=== PATIENT | male | born 1975 | race Caucasian/White ===

== ENCOUNTER 2022-08-11 08:45 | Inpatient (IN) | payer BC ==
[2022-08-11] MEDS ORDERED: Sodium Chloride 0.9% 1000 ML 1,000 ML IV STA (09:12)
[2022-08-11] MEDS ORDERED: MORPHINE SULFATE 2 MG INJ IV ONE (09:12)
[2022-08-11 09:18] LABS: Absolute Neutrophil Ct (ANC) 10.28 x10^3/uL (1.4-6.9); Basophil (Absolute #) 0.04 x10^3/uL (0-0.4); Eosinophil % 0.6 % (0.00-5.0); Eosinophil (Absolute #) 0.08 x10^3/uL (0-0.5); Hematocrit 45.9 % (42-50); Hemoglobin 16.2 g/dL (12.5-18.0); Lymphocyte (Absolute #) 1.41 x10^3/uL (1.0-4.6); Mean Cell Volume 83.9 fL (78-100); Mean Corpuscular Hemoglobin 29.6 pg (26-32); Mean Corpuscular Hgb Concent. 35.3 g/dL (32-36); Mean Platelet Volume 9.6 fL (7.5-11.0); Monocyte (Absolute #) 1.03 x10^3/uL (0.0-1.3); Neutrophil % 79.9 % (36.0-66.0); Platelet Count 217 x10^3/uL (150-450); Red Blood Count 5.47 x10^6/uL (4.1-5.6); Red Cell Distribution Width 12.8 % (11.5-14.0); White Blood Count 12.9 x10^3/uL (4.0-10.5)
[2022-08-11] MEDS ORDERED: MORPHINE SULFATE 2 MG INJ ONE (09:20)
[2022-08-11] MEDS ORDERED: Sodium Chloride 0.9% 1000 ML 1,000 ML ONE (09:20)
[2022-08-11 09:30] LABS: ALBUMIN 4.4 g/dL (3.5-5.0); ALKALINE PHOSPHATASE 75 U/L (38-126); ANION GAP 11.5 MEQ/L (5-15); BLOOD UREA NITROGEN 15 mg/dL (9-20); CHLORIDE 105 mmol/L (98-107); Calcium 8.8 mg/dL (8.4-10.2); Carbon Dioxide 21 mmol/L (22-30); Creatinine 1 0.83 mg/dL (0.66-1.25); EST GLOMERULAR FILTRATION RATE > 60.0 ML/MIN; Glucose 121 mg/dL (74-106); LIPASE 50 U/L (23-300); Potassium 4.1 mmol/L (3.5-5.1); SGOT/AST 28 U/L (17-59); SGPT/ALT 30 U/L (0-50); SODIUM 133 mmol/L (137-145); Total Protein 7.3 g/dL (6.3-8.2)
[2022-08-11] MEDS ORDERED: MORPHINE SULFATE 4 MG INJ IV ONE ×2 (09:58→11:05)
--- NOTE | 2022-08-11 10:01 | XRAY ---
Indication: Pain and nausea. History stones. Multiple contiguous axial images obtained through the abdomen and pelvis without contrast. Comparison: April 24, 2016 Lung bases now demonstrates mild left base subsegmental atelectasis/scarring. No infiltrate or effusion. Heart not enlarged. Again small hiatal hernia. Noncontrasted stomach and bowel loops remain nonobstructed again with normal appendix. There remains scattered descending and sigmoid diverticulosis with new short segment of mild sigmoid diverticulitis. Tiny extraluminal air bubble concerning for perforation. No free fluid. Enlarging 1 cm gallstone. Again incidental fatty liver and 14.4 cm splenomegaly. Previous right renal cyst not seen on noncontrast exam. Remaining liver, gallbladder, pancreas, spleen, adrenal glands, kidneys, ureters, bladder, and aorta are unremarkable for noncontrast exam. Osseous structures intact again with mild L5-S1 degenerative changes. Impression: 1. Again colonic diverticulosis with new mild sigmoid diverticulitis. Tiny extraluminal air bubble concerning for perforation. 2. Again incidental small hiatal hernia, fatty liver, gallstone, and splenomegaly.
[2022-08-11] MEDS ORDERED: MORPHINE SULFATE 4 MG INJ ONE (10:17)
[2022-08-11 10:25] LABS: Appearance CLEAR (CLEAR); Bilirubin NEGATIVE (NEGATIVE); Dipstick done @ ? MAIN LAB; Glucose NEGATIVE (NEGATIVE); Ketones NEGATIVE (NEGATIVE); Nitrite NEGATIVE (NEGATIVE); Protein,Urine Dip NEGATIVE (Negative); RBC NEGATIVE Ery/ul (0-5); Urobilinogen 1 mg/dL (0-1)
[2022-08-11] MEDS ORDERED: PIPERACILLIN/TAZOBACTAM 3.375 GM in Sodium Chloride 100ML MINI-BAG PLUS 100 ML IV ONE (10:28)
[2022-08-11 10:34] LABS: Urine Cultured Indicated? NO
[2022-08-11] MEDS ORDERED: PIPERACILLIN/TAZOBACTAM IV ONE (10:37)
[2022-08-11] MEDS ORDERED: Sodium Chloride 100ML MINI-BAG PLUS 100 ML IV ONE (10:39)
[2022-08-11 10:53] LABS: INFLUENZA A NEGATIVE (NEGATIVE); INFLUENZA B NEGATIVE (NEGATIVE); RESPIRATORY SYNCTIAL VIRUS NEGATIVE (Negative); SARS-CoV-2 Xpert Express NEGATIVE (NEGATIVE)
[2022-08-11] MEDS ORDERED: Hydromorphone 1 mg/ml Injection IV ONE (11:08)
--- NOTE | 2022-08-11 11:16 | ERPHSYRPT ---
- History of Present Illness Time Seen by Provider: 08/11/22 09:00 Historian: patient Exam Limitations: no limitations Patient Subjective Stated Complaint: Pt states "I woke up this morning and I feel like I have tremendous pressure in my abdomen. I got a little relief when I urinated this morning but it hurts really bad." Triage Nursing Assessment: Pt presented alert and tearful. Pt is coming from [facility]. Pt able to stand hunched over, moaning and guarding his abodmen. PT moans every time he moves. Physician History: Patient is a 46-year-old male presents emergency department for evaluation of lower abdominal pain. Pain observed this morning. Patient states he urinated and experienced some relief. Patient has a history of diverticulitis. Patient states pain is similar. Pain described as an ache that is localized to the lower abdomen. No peritoneal signs. No associated nausea vomiting or diarrhea. No rash. No fever. Symptoms are moderate in intensity. Patient voices no other complaints or concerns at this time. Portions of this note were created with voice recognition technology. There may be grammatical, spelling, punctuation or sound alike errors Timing/Duration: today Activities at Onset: none Quality: aching Abdominal Pain Onset Location: other (Left lower quadrant) Pain Radiation: no radiation Severity of Pain-Max: moderate Severity of Pain-Current: mild Modifying Factors: Improves With: nothing Associated Symptoms: denies symptoms Previous symptoms: same symptoms as today Allergies/Adverse Reactions: No Known Drug Allergies Allergy (Verified 08/11/22 08:59) Home Medications: Apixaban [Eliquis 5 mg Tablet] 5 mg PO BID 08/11/22 [History] Hx Tetanus, Diphtheria Vaccination/Date Given: Yes Hx Influenza Vaccination/Date Given: Yes Hx Pneumococcal Vaccination/Date Given: No Immunizations Up to Date: Yes Travel Risk - International Travel Have you traveled outside of the country in past 3 weeks: No - Coronavirus Screening Are you exhibiting any of the following symptoms?: No Close contact with a COVID-19 positive Pt in past 14-21 Days: No - Vaccine Status Have you recieved a Covid-19 vaccination: No - Review of Systems Constitutional: No Symptoms Eyes: No Symptoms Ears, Nose, & Throat: No Symptoms Respiratory: No Symptoms Cardiac: No Symptoms Abdominal/Gastrointestinal: No Symptoms Genitourinary Symptoms: No Symptoms Musculoskeletal: No Symptoms Skin: No Symptoms Neurological: No Symptoms Psychological: No Symptoms Endocrine: No Symptoms Hematologic/Lymphatic: No Symptoms Immunological/Allergic: No Symptoms - Past Medical History Pertinent Past Medical History: Yes Neurological History: No Pertinent History ENT History: No Pertinent History Cardiac History: Deep Vein Thrombosis Respiratory History: Pulmonary Embolism Endocrine Medical History: No Pertinent History Musculoskeletal History: No Pertinent History GI Medical History: No Pertinent History History: No Pertinent History Psycho-Social History: No Pertinent History Male Reproductive Disorders: No Pertinent History Other Medical History: DVT. factor V - Past Surgical History Past Surgical History: Yes Other Surgical History: tear duct in right eye - Social History Smoking Status: Former smoker Exposure to second hand smoke: Yes Drug Use: none Patient Lives Alone: No - Nursing Vital Signs Nursing Vital Signs: Initial Vital Signs Temperature 98.0 F 08/11/22 08:54 Pulse Rate 80 08/11/22 08:54 Respiratory Rate 24 08/11/22 08:54 Blood Pressure 128/91 08/11/22 08:54 O2 Sat by Pulse Oximetry 97 08/11/22 08:54 Pain Scale Pain Intensity 6 - Physical Exam General Appearance: no apparent distress, alert Eye Exam: PERRL/EOMI, eyes nml inspection Ears, Nose, Throat Exam: normal ENT inspection, pharynx normal, moist mucous membranes Neck Exam: normal inspection, non-tender, supple, full range of motion Respiratory Exam: normal breath sounds, lungs clear, No respiratory distress Cardiovascular Exam: regular rate/rhythm, normal heart sounds Gastrointestinal/Abdomen Exam: soft, tenderness, other (Tenderness palpation suprapubic region and left lower quadrant. Overlying soft tissue intact. No signs of trauma), No mass Back Exam: normal inspection, normal range of motion, No CVA tenderness, No vertebral tenderness Extremity Exam: normal inspection, normal range of motion, pelvis stable Neurologic Exam: alert, oriented x 3, cooperative, normal mood/affect, nml cerebellar function, sensation nml, No motor deficits Skin Exam: normal color, warm, dry Lymphatic Exam: No adenopathy SpO2 Interpretation: normal SpO2: 98 O2 Delivery: Room Air - Course Nursing assessment & vital signs reviewed: Yes - CT Exams Abdomen/Pelvis CT Interpretation: Tele-radiologist Report (Sigmoid diverticulosis with diverticulitis. There is a tiny extraluminal air observed concerning for perforation. Splenomegaly. Degenerative changes. Hiatal hernia.) Ordered Tests: Active Orders 24 hr Category Date Time Status IV Insertion STAT Care 08/11/22 09:12 Active ABDOMEN AND PELVIS W/0 CONTRAS [CT] Stat Exams 08/11/22 09:48 Completed CBC W DIFF Stat Lab 08/11/22 09:05 Completed CMP Stat Lab 08/11/22 09:05 Completed LIPASE Stat Lab 08/11/22 09:05 Completed Lactic Acid Stat Lab 08/11/22 09:12 Completed TROPONIN Q4H Lab 08/11/22 09:05 Completed TROPONIN Q4H Lab 08/11/22 13:15 Ordered TROPONIN Q4H Lab 08/11/22 17:15 Ordered UA W/RFX CULTURE Stat Lab 08/11/22 10:20 Completed Medication Summary Discontinued Medications Generic Name Dose Route Start Last Admin Trade Name Freq PRN Reason Stop Dose Admin Hydromorphone HCl 1 mg 08/11/22 11:08 Hydromorphone 1 Mg/1ml Inj 1 Mg/Ml Syringe IV 08/11/22 11:09 STAT ONE Sodium Chloride 1,000 mls @ 999 mls/hr 08/11/22 09:12 08/11/22 10:25 Sodium Chloride 0.9% 1000 Ml IV 08/11/22 10:12 Infused .Q1H1M STA Infusion Sodium Chloride Confirm 08/11/22 09:20 Sodium Chloride 0.9% 1000 Ml Administered 08/11/22 09:21 Dose 1,000 mls @ ud .ROUTE .STK-MED ONE Piperacillin Sod/Tazobactam 100 mls @ 200 mls/hr 08/11/22 10:28 08/11/22 10:41 Sod 3.375 gm/ Sodium Chloride IV 08/11/22 10:57 200 mls/hr STAT ONE Administration Sodium Chloride Confirm 08/11/22 10:39 Sodium Chloride 100ml Mini-Bag Plus Administered 08/11/22 10:40 Dose 100 mls @ ud IV .STK-MED ONE Morphine Sulfate 2 mg 08/11/22 09:12 08/11/22 09:22 Morphine Sulfate 2 Mg/Ml Inj IV 08/11/22 09:13 2 mg STAT ONE Administration Morphine Sulfate Confirm 08/11/22 09:20 Morphine Sulfate 2 Mg/Ml Inj Administered 08/11/22 09:21 Dose 2 mg .ROUTE .STK-MED ONE Morphine Sulfate 4 mg 08/11/22 09:58 08/11/22 10:17 Morphine Sulfate 4 Mg/Ml Injection IV 08/11/22 09:59 4 mg STAT ONE Administration Morphine Sulfate Confirm 08/11/22 10:17 Morphine Sulfate 4 Mg/Ml Injection Administered 08/11/22 10:18 Dose 4 mg .ROUTE .STK-MED ONE Morphine Sulfate 4 mg 08/11/22 11:05 08/11/22 11:08 Morphine Sulfate 4 Mg/Ml Injection IV 08/11/22 11:06 Not Given STAT ONE Piperacillin Sod/Tazobactam Sod Confirm 08/11/22 10:37 Piperacillin/Tazobactam Sodium 3.375 Gm Vial Administered 08/11/22 10:38 Dose 3.375 gm IV .STK-MED ONE Lab/Rad Data: Laboratory Result Diagrams 08/11/22 09:05 08/11/22 09:05 Laboratory Results 08/11/22 08/11/22 08/11/22 Range/Units 10:20 09:12 09:05 WBC (4.0-10.5) x10^3/uL RBC (4.1-5.6) x10^6/uL Hgb (12.5-18.0) g/dL Hct (42-50) % MCV (78-100) fL MCH (26-32) pg MCHC (32-36) g/dL RDW (11.5-14.0) % Plt Count (150-450) x10^3/uL MPV (7.5-11.0) fL Gran % (36.0-66.0) % Immature Gran % (Auto) (0.00-0.4) % Nucleat RBC Rel Count (0.00-0.1) % Eos # (Auto) (0-0.5) x10^3/uL Immature Gran # (Auto) (0.00-0.03) x10^3u/L Absolute Lymphs (auto) (1.0-4.6) x10^3/uL Absolute Monos (auto) (0.0-1.3) x10^3/uL Absolute Nucleated RBC (0.00-0.01) x10^3u/L Lymphocytes % (24.0-44.0) % Monocytes % (0.0-12.0) % Eosinophils % (0.00-5.0) % Basophils % (0.0-0.4) % Absolute Granulocytes (1.4-6.9) x10^3/uL Basophils # (0-0.4) x10^3/uL Sodium (137-145) mmol/L Potassium (3.5-5.1) mmol/L Chloride (98-107) mmol/L Carbon Dioxide (22-30) mmol/L Anion Gap (5-15) MEQ/L BUN (9-20) mg/dL Creatinine (0.66-1.25) mg/dL Estimated GFR ML/MIN Glucose (74-106) mg/dL Lactic Acid 1.4 (0.4-2.0) Calcium (8.4-10.2) mg/dL Total Bilirubin (0.2-1.3) mg/dL AST (17-59) U/L ALT (0-50) U/L Alkaline Phosphatase (38-126) U/L Troponin I < 0.012 (0.000-0.034) ng/mL Serum Total Protein (6.3-8.2) g/dL Albumin (3.5-5.0) g/dL Lipase (23-300) U/L Urinalys Dipstick Clnc MAIN LAB Urine Color YELLOW (YELLOW) Urine Appearance CLEAR (CLEAR) Urine pH 7.0 (5-6) Ur Specific [place] 1.020 (1.005-1.025) POC Urine Protein Conf NEGATIVE (Negative) Urine Ketones NEGATIVE (NEGATIVE) Urine Nitrite NEGATIVE (NEGATIVE) Urine Bilirubin NEGATIVE (NEGATIVE) Urine Urobilinogen 1 (0-1) mg/dL Urine Leukocytes NEGATIVE (NEGATIVE) Urine WBC (Auto) NONE (0-5) /HPF Urine RBC (Auto) NONE (0-2) /HPF U Epithel Cells (Auto) NONE (FEW) /HPF Urine Bacteria (Auto) NONE (NEGATIVE) /HPF Urine RBC NEGATIVE (0-5) Junior/ul Ur Culture Indicated? NO Urine Glucose NEGATIVE (NEGATIVE) mg/dL 08/11/22 08/11/22 Range/Units 09:05 09:05 WBC 12.9 H (4.0-10.5) x10^3/uL RBC 5.47 (4.1-5.6) x10^6/uL Hgb 16.2 (12.5-18.0) g/dL Hct 45.9 (42-50) % MCV 83.9 (78-100) fL MCH 29.6 (26-32) pg MCHC 35.3 (32-36) g/dL RDW 12.8 (11.5-14.0) % Plt Count 217 (150-450) x10^3/uL MPV 9.6 (7.5-11.0) fL Gran % 79.9 H (36.0-66.0) % Immature Gran % (Auto) 0.2 (0.00-0.4) % Nucleat RBC Rel Count 0.0 (0.00-0.1) % Eos # (Auto) 0.08 (0-0.5) x10^3/uL Immature Gran # (Auto) 0.03 (0.00-0.03) x10^3u/L Absolute Lymphs (auto) 1.41 (1.0-4.6) x10^3/uL Absolute Monos (auto) 1.03 (0.0-1.3) x10^3/uL Absolute Nucleated RBC 0.00 (0.00-0.01) x10^3u/L Lymphocytes % 11.0 L (24.0-44.0) % Monocytes % 8.0 (0.0-12.0) % Eosinophils % 0.6 (0.00-5.0) % Basophils % 0.3 (0.0-0.4) % Absolute Granulocytes 10.28 H (1.4-6.9) x10^3/uL Basophils # 0.04 (0-0.4) x10^3/uL Sodium 133 L (137-145) mmol/L Potassium 4.1 (3.5-5.1) mmol/L Chloride 105 (98-107) mmol/L Carbon Dioxide 21 L (22-30) mmol/L Anion Gap 11.5 (5-15) MEQ/L BUN 15 (9-20) mg/dL Creatinine 0.83 (0.66-1.25) mg/dL Estimated GFR > 60.0 ML/MIN Glucose 121 H (74-106) mg/dL Lactic Acid (0.4-2.0) Calcium 8.8 (8.4-10.2) mg/dL Total Bilirubin 1.10 (0.2-1.3) mg/dL AST 28 (17-59) U/L ALT 30 (0-50) U/L Alkaline Phosphatase 75 (38-126) U/L Troponin I (0.000-0.034) ng/mL Serum Total Protein 7.3 (6.3-8.2) g/dL Albumin 4.4 (3.5-5.0) g/dL Lipase 50 (23-300) U/L Urinalys Dipstick Clnc Urine Color (YELLOW) Urine Appearance (CLEAR) Urine pH (5-6) Ur Specific [place] (1.005-1.025) POC Urine Protein Conf (Negative) Urine Ketones (NEGATIVE) Urine Nitrite (NEGATIVE) Urine Bilirubin (NEGATIVE) Urine Urobilinogen (0-1) mg/dL Urine Leukocytes (NEGATIVE) Urine WBC (Auto) (0-5) /HPF Urine RBC (Auto) (0-2) /HPF U Epithel Cells (Auto) (FEW) /HPF Urine Bacteria (Auto) (NEGATIVE) /HPF Urine RBC (0-5) Junior/ul Ur Culture Indicated? Urine Glucose (NEGATIVE) mg/dL - Progress Progress: improved Progress Note: Patient reassessed. Pain improved. Work-up reveals a diverticulitis possible microperforation. Case discussed with of general surgery who accepts consultation. Case discussed with who accepts admission to observation. Plan of care discussed with patient. He agrees to admission [facility] for further evaluation. Antibiotics infused. Patient voices no other complaints or concerns at this time. Portions of this note were created with voice recognition technology. There may be grammatical, spelling, punctuation or sound alike errors 08/11/22 11:[address] Charley Guardado Will see patient in: hospital (observation) Counseled pt/family regarding: lab results, diagnosis, rad results - Departure Departure Disposition: Observation Clinical Impression: Diverticulitis, Microperforation sigmoid colon, Splenomegaly, Hiatal hernia, Sigmoid diverticulosis, Abdominal pain, Leukocytosis Condition: Stable Critical Care Time: No Referrals: MICHAEL GRAVES [Primary Care Provider] - Follow up/PCP as directed
[2022-08-11] MEDS ORDERED: Hydromorphone 1 mg/ml Injection ONE (11:24)
[2022-08-11] MEDS ORDERED: PIPERACILLIN/TAZOBACTAM 3.375 GM in Sodium Chloride 100ML MINI-BAG PLUS 100 ML IV SCH (12:35)
[2022-08-11] MEDS: Sodium Chloride 0.9% 1000 ML 1,000 ML IV SCH ×2 (13:19→22:11)
[2022-08-11] MEDS: Hydromorphone 1 mg/ml Injection IV PRN ×2 (16:05→22:09)
[2022-08-11] MEDS: PIPERACILLIN/TAZOBACTAM 3.375 GM in Sodium Chloride 100ML MINI-BAG PLUS 100 ML IV SCH (17:36)
--- NOTE | 2022-08-11 20:42 | PCM.HP ---
History of Present Illness - Chief Complaint Chief Complaint: abdominal pain for 1 day History of Present Illness: is a 46 year old male.presents emergency department for evaluation of lower abdominal pain. Pain observed this morning. Patient states he urinated and experienced some relief. Patient has a history of diverticulitis. Patient states pain is similar. Pain described as an ache that is localized to the lower abdomen. No peritoneal signs. No associated nausea vomiting or diarrhea. No rash. No fever. Symptoms are moderate in intensity. Patient voices no other complaints or concerns at this time. Portions of this note were created with voice recognition technology. There may be grammatical, spelling, punctuation or sound alike errors Timing/Duration: today Activities at Onset: none Quality: aching Abdominal Pain Onset Location: other (Left lower quadrant) Pain Radiation: no radiation Severity of Pain-Max: moderate Severity of Pain-Current: mild Modifying Factors: Improves With: nothing Associated Symptoms: denies symptoms Previous symptoms: same symptoms as today - Review of Systems Constitutional: No Fever, No Chills Eyes: No Symptoms Ears, Nose, & Throat: No Symptoms Respiratory: No Cough, No Short Of Breath Cardiac: No Chest Pain, No Edema, No Syncope Abdominal/Gastrointestinal: Abdominal Pain, Nausea, Vomiting, No Diarrhea Genitourinary Symptoms: No Dysuria Musculoskeletal: No Back Pain, No Neck Pain Skin: No Rash Neurological: No Dizziness, No Focal Weakness, No Sensory Changes Psychological: No Symptoms Endocrine: No Symptoms Hematologic/Lymphatic: No Symptoms Immunological/Allergic: No Symptoms Medications & Allergies Home Medications: Home Medication List Acetaminophen 500 mg [Tylenol Extra Strength 500 mg] 2 - 3 tab PO Q4-6HPRN PRN 08/11/22 [History Confirmed 08/11/22] Apixaban [Eliquis 5 mg Tablet] 5 mg PO BID 08/11/22 [History Confirmed 08/11/22] Allergies/Adverse Reactions: Allergies Allergy/AdvReac Type Severity Reaction Status Date / Time No Known Drug Allergies Allergy Verified 08/11/22 08:59 - Past Medical History Past Medical History: Yes Neurological History: No Pertinent History ENT History: No Pertinent History Cardiac History: Deep Vein Thrombosis Respiratory History: Pulmonary Embolism Endocrine Medical History: No Pertinent History Musculoskelatal History: No Pertinent History GI Medical History: Diverticulitis History: No Pertinent History Pyscho-Social History: No Pertinent History Male Reproductive Disorders: No Pertinent History Comment: DVT. factor V - Past Surgical History Past Surgical History: Yes Other Surgical History: tear duct in right eye - Social History Smoking Status: Former smoker Exposure to second hand smoke: Yes Alcohol: Rarely Drug Use: none - Physical Exam Vital Signs: Vital Signs - 24 hr Temp Pulse Resp BP Pulse Ox 08/11/22 20:00 98.1 F 91 H 18 113/74 93 L 08/11/22 16:00 99.6 F 92 H 16 121/72 93 L 08/11/22 14:03 100.1 F 99 H 22 118/72 96 08/11/22 13:22 100 08/11/22 12:41 100.1 F 99 H 22 118/72 96 08/11/22 12:08 90 20 117/75 92 L 08/11/22 11:31 98 08/11/22 11:03 98.0 F 95 H 20 134/84 98 08/11/22 10:20 98.0 F 88 18 134/88 98 08/11/22 09:50 98.0 F 83 20 134/88 98 08/11/22 08:54 98.0 F 80 24 128/91 97 General Appearance: no apparent distress, alert Neurologic Exam: alert, oriented x 3, cooperative, normal mood/affect, nml cerebellar function, nml station & gait, sensation nml, No motor deficits Eye Exam: PERRL/EOMI, eyes nml inspection Ears, Nose, Throat Exam: normal ENT inspection, TMs normal, pharynx normal, moist mucous membranes Neck Exam: normal inspection, non-tender, supple, full range of motion Respiratory Exam: normal breath sounds, lungs clear, No respiratory distress Cardiovascular Exam: regular rate/rhythm, normal heart sounds, normal peripheral pulses Gastrointestinal/Abdomen Exam: tenderness, distention, guarding, other (no Bowel sounds), No normal bowel sounds, No mass Back Exam: normal inspection, normal range of motion, No CVA tenderness, No vertebral tenderness Extremity Exam: normal inspection, normal range of motion, pelvis stable Skin Exam: normal color, warm, dry, No rash Lymphatic Exam: No adenopathy Results - Labs Lab/Micro Results: Lab Results-Last 24 Hours 10/25/22 10/25/22 10/25/22 Range/Units 09:05 09:05 09:05 WBC 12.9 H (4.0-10.5) x10^3/uL RBC 5.47 (4.1-5.6) x10^6/uL Hgb 16.2 (12.5-18.0) g/dL Hct 45.9 (42-50) % MCV 83.9 (78-100) fL MCH 29.6 (26-32) pg MCHC 35.3 (32-36) g/dL RDW 12.8 (11.5-14.0) % Plt Count 217 (150-450) x10^3/uL MPV 9.6 (7.5-11.0) fL Gran % 79.9 H (36.0-66.0) % Immature Gran % (Auto) 0.2 (0.00-0.4) % Nucleat RBC Rel Count 0.0 (0.00-0.1) % Eos # (Auto) 0.08 (0-0.5) x10^3/uL Immature Gran # (Auto) 0.03 (0.00-0.03) x10^3u/L Absolute Lymphs (auto) 1.41 (1.0-4.6) x10^3/uL Absolute Monos (auto) 1.03 (0.0-1.3) x10^3/uL Absolute Nucleated RBC 0.00 (0.00-0.01) x10^3u/L Lymphocytes % 11.0 L (24.0-44.0) % Monocytes % 8.0 (0.0-12.0) % Eosinophils % 0.6 (0.00-5.0) % Basophils % 0.3 (0.0-0.4) % Absolute Granulocytes 10.28 H (1.4-6.9) x10^3/uL Basophils # 0.04 (0-0.4) x10^3/uL Sodium 133 L (137-145) mmol/L Potassium 4.1 (3.5-5.1) mmol/L Chloride 105 (98-107) mmol/L Carbon Dioxide 21 L (22-30) mmol/L Anion Gap 11.5 (5-15) MEQ/L BUN 15 (9-20) mg/dL Creatinine 0.83 (0.66-1.25) mg/dL Estimated GFR > 60.0 ML/MIN Glucose 121 H (74-106) mg/dL Lactic Acid (0.4-2.0) Calcium 8.8 (8.4-10.2) mg/dL Total Bilirubin 1.10 (0.2-1.3) mg/dL AST 28 (17-59) U/L ALT 30 (0-50) U/L Alkaline Phosphatase 75 (38-126) U/L Troponin I < 0.012 (0.000-0.034) ng/mL Serum Total Protein 7.3 (6.3-8.2) g/dL Albumin 4.4 (3.5-5.0) g/dL Lipase 50 (23-300) U/L Urinalys Dipstick Clnc Urine Color (YELLOW) Urine Appearance (CLEAR) Urine pH (5-6) Ur Specific Bear (1.005-1.025) POC Urine Protein Conf (Negative) Urine Ketones (NEGATIVE) Urine Nitrite (NEGATIVE) Urine Bilirubin (NEGATIVE) Urine Urobilinogen (0-1) mg/dL Urine Leukocytes (NEGATIVE) Urine WBC (Auto) (0-5) /HPF Urine RBC (Auto) (0-2) /HPF U Epithel Cells (Auto) (FEW) /HPF Urine Bacteria (Auto) (NEGATIVE) /HPF Urine RBC (0-5) Junior/ul Ur Culture Indicated? Urine Glucose (NEGATIVE) mg/dL Influenza Type A Ag (NEGATIVE) Influenza Type B Ag (NEGATIVE) RSV (PCR) (Negative) SARS-CoV-2 (PCR) (NEGATIVE) 08/11/22 08/11/22 08/11/22 Range/Units 09:12 10:07 10:20 WBC (4.0-10.5) x10^3/uL RBC (4.1-5.6) x10^6/uL Hgb (12.5-18.0) g/dL Hct (42-50) % MCV (78-100) fL MCH (26-32) pg MCHC (32-36) g/dL RDW (11.5-14.0) % Plt Count (150-450) x10^3/uL MPV (7.5-11.0) fL Gran % (36.0-66.0) % Immature Gran % (Auto) (0.00-0.4) % Nucleat RBC Rel Count (0.00-0.1) % Eos # (Auto) (0-0.5) x10^3/uL Immature Gran # (Auto) (0.00-0.03) x10^3u/L Absolute Lymphs (auto) (1.0-4.6) x10^3/uL Absolute Monos (auto) (0.0-1.3) x10^3/uL Absolute Nucleated RBC (0.00-0.01) x10^3u/L Lymphocytes % (24.0-44.0) % Monocytes % (0.0-12.0) % Eosinophils % (0.00-5.0) % Basophils % (0.0-0.4) % Absolute Granulocytes (1.4-6.9) x10^3/uL Basophils # (0-0.4) x10^3/uL Sodium (137-145) mmol/L Potassium (3.5-5.1) mmol/L Chloride (98-107) mmol/L Carbon Dioxide (22-30) mmol/L Anion Gap (5-15) MEQ/L BUN (9-20) mg/dL Creatinine (0.66-1.25) mg/dL Estimated GFR ML/MIN Glucose (74-106) mg/dL Lactic Acid 1.4 (0.4-2.0) Calcium (8.4-10.2) mg/dL Total Bilirubin (0.2-1.3) mg/dL AST (17-59) U/L ALT (0-50) U/L Alkaline Phosphatase (38-126) U/L Troponin I (0.000-0.034) ng/mL Serum Total Protein (6.3-8.2) g/dL Albumin (3.5-5.0) g/dL Lipase (23-300) U/L Urinalys Dipstick Clnc MAIN LAB Urine Color YELLOW (YELLOW) Urine Appearance CLEAR (CLEAR) Urine pH 7.0 (5-6) Ur Specific Bear 1.020 (1.005-1.025) POC Urine Protein Conf NEGATIVE (Negative) Urine Ketones NEGATIVE (NEGATIVE) Urine Nitrite NEGATIVE (NEGATIVE) Urine Bilirubin NEGATIVE (NEGATIVE) Urine Urobilinogen 1 (0-1) mg/dL Urine Leukocytes NEGATIVE (NEGATIVE) Urine WBC (Auto) NONE (0-5) /HPF Urine RBC (Auto) NONE (0-2) /HPF U Epithel Cells (Auto) NONE (FEW) /HPF Urine Bacteria (Auto) NONE (NEGATIVE) /HPF Urine RBC NEGATIVE (0-5) Junior/ul Ur Culture Indicated? NO Urine Glucose NEGATIVE (NEGATIVE) mg/dL Influenza Type A Ag NEGATIVE (NEGATIVE) Influenza Type B Ag NEGATIVE (NEGATIVE) RSV (PCR) NEGATIVE (Negative) SARS-CoV-2 (PCR) NEGATIVE (NEGATIVE) 08/11/22 08/11/22 Range/Units 13:03 16:50 WBC (4.0-10.5) x10^3/uL RBC (4.1-5.6) x10^6/uL Hgb (12.5-18.0) g/dL Hct (42-50) % MCV (78-100) fL MCH (26-32) pg MCHC (32-36) g/dL RDW (11.5-14.0) % Plt Count (150-450) x10^3/uL MPV (7.5-11.0) fL Gran % (36.0-66.0) % Immature Gran % (Auto) (0.00-0.4) % Nucleat RBC Rel Count (0.00-0.1) % Eos # (Auto) (0-0.5) x10^3/uL Immature Gran # (Auto) (0.00-0.03) x10^3u/L Absolute Lymphs (auto) (1.0-4.6) x10^3/uL Absolute Monos (auto) (0.0-1.3) x10^3/uL Absolute Nucleated RBC (0.00-0.01) x10^3u/L Lymphocytes % (24.0-44.0) % Monocytes % (0.0-12.0) % Eosinophils % (0.00-5.0) % Basophils % (0.0-0.4) % Absolute Granulocytes (1.4-6.9) x10^3/uL Basophils # (0-0.4) x10^3/uL Sodium (137-145) mmol/L Potassium (3.5-5.1) mmol/L Chloride (98-107) mmol/L Carbon Dioxide (22-30) mmol/L Anion Gap (5-15) MEQ/L BUN (9-20) mg/dL Creatinine (0.66-1.25) mg/dL Estimated GFR ML/MIN Glucose (74-106) mg/dL Lactic Acid (0.4-2.0) Calcium (8.4-10.2) mg/dL Total Bilirubin (0.2-1.3) mg/dL AST (17-59) U/L ALT (0-50) U/L Alkaline Phosphatase (38-126) U/L Troponin I < 0.012 < 0.012 (0.000-0.034) ng/mL Serum Total Protein (6.3-8.2) g/dL Albumin (3.5-5.0) g/dL Lipase (23-300) U/L Urinalys Dipstick Clnc Urine Color (YELLOW) Urine Appearance (CLEAR) Urine pH (5-6) Ur Specific Bear (1.005-1.025) POC Urine Protein Conf (Negative) Urine Ketones (NEGATIVE) Urine Nitrite (NEGATIVE) Urine Bilirubin (NEGATIVE) Urine Urobilinogen (0-1) mg/dL Urine Leukocytes (NEGATIVE) Urine WBC (Auto) (0-5) /HPF Urine RBC (Auto) (0-2) /HPF U Epithel Cells (Auto) (FEW) /HPF Urine Bacteria (Auto) (NEGATIVE) /HPF Urine RBC (0-5) Junior/ul Ur Culture Indicated? Urine Glucose (NEGATIVE) mg/dL Influenza Type A Ag (NEGATIVE) Influenza Type B Ag (NEGATIVE) RSV (PCR) (Negative) SARS-CoV-2 (PCR) (NEGATIVE) - Radiology Impressions Radiology Exams & Impressions: Radiology Procedures Category Date Time Status ABDOMEN AND PELVIS W/0 CONTRAS [CT] Stat Exams 08/11/22 09:[address]/ABDOMEN AND PELVIS W/0 CONTRAS Indication: Pain and nausea. History stones. Multiple contiguous axial images obtained through the abdomen and pelvis without contrast. Comparison: April 24, 2016 Lung bases now demonstrates mild left base subsegmental atelectasis/scarring. No infiltrate or effusion. Heart not enlarged. Again small hiatal hernia. Noncontrasted stomach and bowel loops remain nonobstructed again with normal appendix. There remains scattered descending and sigmoid diverticulosis with new short segment of mild sigmoid diverticulitis. Tiny extraluminal air bubble concerning for perforation. No free fluid. Enlarging 1 cm gallstone. Again incidental fatty liver and 14.4 cm splenomegaly. Previous right renal cyst not seen on noncontrast exam. Remaining liver, gallbladder, pancreas, spleen, adrenal glands, kidneys, ureters, bladder, and aorta are unremarkable for noncontrast exam. Osseous structures intact again with mild L5-S1 degenerative changes. Impression: 1. Again colonic diverticulosis with new mild sigmoid diverticulitis. Tiny extraluminal air bubble concerning for perforation. 2. Again incidental small hiatal hernia, fatty liver, gallstone, and splenomegaly. Assessment/Plan (1) Diverticular disease of both small and large intestine with perforation and abscess Current Visit: Yes Status: Acute Assessment & Plan: Chief Complaint Diagnosis Diverticulitis with sigmoid microperforation Allergies Allergy/AdvReac Type Severity Reaction Status Date / Time No Known Drug Allergies Allergy Verified 08/11/22 08:59 Vital Signs (Last 24 hours) Temp Pulse Resp BP Pulse Ox 08/11/22 20:00 98.1 F 91 H 18 113/74 93 L 08/11/22 16:00 99.6 F 92 H 16 121/72 93 L 08/11/22 14:03 100.1 F 99 H 22 118/72 96 08/11/22 13:22 100 08/11/22 12:41 100.1 F 99 H 22 118/72 96 08/11/22 12:08 90 20 117/75 92 L 08/11/22 11:31 98 08/11/22 11:03 98.0 F 95 H 20 134/84 98 08/11/22 10:20 98.0 F 88 18 134/88 98 08/11/22 09:50 98.0 F 83 20 134/88 98 08/11/22 08:54 98.0 F 80 24 128/91 97 Home Medications Medication Instructions Recorded Confirmed Last Taken Type Acetaminophen 500 mg [Tylenol 2 - 3 tab PO Q4-6HPRN PRN 08/11/22 08/11/22 Unknown History Extra Strength 500 mg] Apixaban [Eliquis 5 mg 5 mg PO BID 08/11/22 08/11/22 08/11/22 History Tablet] 5 Current Medications Generic Name Dose Route Start Last Admin Trade Name Hubert PRN Reason Stop Dose Admin Acetaminophen 1,000 mg 08/11/22 17:26 Acetaminophen 500 Mg Tablet PO 09/10/22 17:25 Q6HPRN PRN PAIN AND/OR FEVER Enoxaparin Sodium 150 mg 08/11/22 20:00 Enoxaparin Sodium 150 Mg/Ml Syringe SQ 09/10/22 19:59 Q12H LURDES Hydromorphone HCl 1 mg 08/11/22 12:35 08/11/22 16:05 Hydromorphone 1 Mg/1ml Inj 1 Mg/Ml Syringe IV 08/16/22 12:34 1 mg Q4H PRN PRN Administration PAIN Sodium Chloride 1,000 mls @ 150 mls/hr 08/11/22 12:35 08/11/22 13:19 Sodium Chloride 0.9% 1000 Ml IV 09/10/22 12:34 100 mls/hr .Q6H40M LURDES Administration Piperacillin Sod/Tazobactam 100 mls @ 200 mls/hr 08/11/22 18:00 08/11/22 17:36 Sod 3.375 gm/ Sodium Chloride IV 08/14/22 17:59 200 mls/hr Q6HT LURDES Administration Discontinued Medications Generic Name Dose Route Start Last Admin Trade Name Hubert PRN Reason Stop Dose Admin Hydromorphone HCl 1 mg 08/11/22 11:08 08/11/22 11:24 Hydromorphone 1 Mg/1ml Inj 1 Mg/Ml Syringe IV 08/11/22 11:09 1 mg STAT ONE Administration Hydromorphone HCl Confirm 08/11/22 11:24 Hydromorphone 1 Mg/1ml Inj 1 Mg/Ml Syringe Administered 08/11/22 11:25 Dose 1 mg .ROUTE .STK-MED ONE Sodium Chloride 1,000 mls @ 999 mls/hr 08/11/22 09:12 08/11/22 10:25 Sodium Chloride 0.9% 1000 Ml IV 08/11/22 10:12 Infused .Q1H1M STA Infusion Sodium Chloride Confirm 08/11/22 09:20 Sodium Chloride 0.9% 1000 Ml Administered 08/11/22 09:21 Dose 1,000 mls @ ud .ROUTE .STK-MED ONE Piperacillin Sod/Tazobactam 100 mls @ 200 mls/hr 08/11/22 10:28 08/11/22 10:41 Sod 3.375 gm/ Sodium Chloride IV 08/11/22 10:57 200 mls/hr STAT ONE Administration Sodium Chloride Confirm 08/11/22 10:39 Sodium Chloride 100ml Mini-Bag Plus Administered 08/11/22 10:40 Dose 100 mls @ ud IV .STK-MED ONE Piperacillin Sod/Tazobactam 100 mls @ 200 mls/hr 08/11/22 12:35 08/11/22 14:16 Sod 3.375 gm/ Sodium Chloride IV 08/14/22 12:34 Not Given Q6HT LURDES Morphine Sulfate 2 mg 08/11/22 09:12 08/11/22 09:22 Morphine Sulfate 2 Mg/Ml Inj IV 08/11/22 09:13 2 mg STAT ONE Administration Morphine Sulfate Confirm 08/11/22 09:20 Morphine Sulfate 2 Mg/Ml Inj Administered 08/11/22 09:21 Dose 2 mg .ROUTE .STK-MED ONE Morphine Sulfate 4 mg 08/11/22 09:58 08/11/22 10:17 Morphine Sulfate 4 Mg/Ml Injection IV 08/11/22 09:59 4 mg STAT ONE Administration Morphine Sulfate Confirm 08/11/22 10:17 Morphine Sulfate 4 Mg/Ml Injection Administered 08/11/22 10:18 Dose 4 mg .ROUTE .STK-MED ONE Morphine Sulfate 4 mg 08/11/22 11:05 08/11/22 11:08 Morphine Sulfate 4 Mg/Ml Injection IV 08/11/22 11:06 Not Given STAT ONE Piperacillin Sod/Tazobactam Sod Confirm 08/11/22 10:37 Piperacillin/Tazobactam Sodium 3.375 Gm Vial Administered 08/11/22 10:38 Dose 3.375 gm IV .STK-MED ONE Intake & Output (Last 24 hours) 08/09/22 08/10/22 08/11/22 08/12/22 11:59 11:59 11:59 11:59 Intake Total 607 Output Total 400 Balance 207 Weight 151.953 kg 150.5 kg Laboratory Results (Last 24 hours) 08/11/22 08/11/22 08/11/22 16:50 13:03 10:20 WBC RBC Hgb Hct MCV MCH MCHC RDW Plt Count MPV Gran % Immature Gran % (Auto) Nucleat RBC Rel Count Eos # (Auto) Immature Gran # (Auto) Absolute Lymphs (auto) Absolute Monos (auto) Absolute Nucleated RBC Lymphocytes % Monocytes % Eosinophils % Basophils % Absolute Granulocytes Basophils # Sodium Potassium Chloride Carbon Dioxide Anion Gap BUN Creatinine Estimated GFR Glucose Lactic Acid Calcium Total Bilirubin AST ALT Alkaline Phosphatase Troponin I < 0.012 < 0.012 Serum Total Protein Albumin Lipase Urinalys Dipstick Clnc MAIN LAB Urine Color YELLOW Urine Appearance CLEAR Urine pH 7.0 Ur Specific Bear 1.020 POC Urine Protein Conf NEGATIVE Urine Ketones NEGATIVE Urine Nitrite NEGATIVE Urine Bilirubin NEGATIVE Urine Urobilinogen 1 Urine Leukocytes NEGATIVE Urine WBC (Auto) NONE Urine RBC (Auto) NONE U Epithel Cells (Auto) NONE Urine Bacteria (Auto) NONE Urine RBC NEGATIVE Ur Culture Indicated? NO Urine Glucose NEGATIVE Influenza Type A Ag Influenza Type B Ag RSV (PCR) SARS-CoV-2 (PCR) 08/11/22 08/11/22 08/11/22 10:07 09:12 09:05 WBC RBC Hgb Hct MCV MCH MCHC RDW Plt Count MPV Gran % Immature Gran % (Auto) Nucleat RBC Rel Count Eos # (Auto) Immature Gran # (Auto) Absolute Lymphs (auto) Absolute Monos (auto) Absolute Nucleated RBC Lymphocytes % Monocytes % Eosinophils % Basophils % Absolute Granulocytes Basophils # Sodium Potassium Chloride Carbon Dioxide Anion Gap BUN Creatinine Estimated GFR Glucose Lactic Acid 1.4 Calcium Total Bilirubin AST ALT Alkaline Phosphatase Troponin I < 0.012 Serum Total Protein Albumin Lipase Urinalys Dipstick Clnc Urine Color Urine Appearance Urine pH Ur Specific Bear POC Urine Protein Conf Urine Ketones Urine Nitrite Urine Bilirubin Urine Urobilinogen Urine Leukocytes Urine WBC (Auto) Urine RBC (Auto) U Epithel Cells (Auto) Urine Bacteria (Auto) Urine RBC Ur Culture Indicated? Urine Glucose Influenza Type A Ag NEGATIVE Influenza Type B Ag NEGATIVE RSV (PCR) NEGATIVE SARS-CoV-2 (PCR) NEGATIVE 08/11/22 08/11/22 09:05 09:05 WBC 12.9 H RBC 5.47 Hgb 16.2 Hct 45.9 MCV 83.9 MCH 29.6 MCHC 35.3 RDW 12.8 Plt Count 217 MPV 9.6 Gran % 79.9 H Immature Gran % (Auto) 0.2 Nucleat RBC Rel Count 0.0 Eos # (Auto) 0.08 Immature Gran # (Auto) 0.03 Absolute Lymphs (auto) 1.41 Absolute Monos (auto) 1.03 Absolute Nucleated RBC 0.00 Lymphocytes % 11.0 L Monocytes % 8.0 Eosinophils % 0.6 Basophils % 0.3 Absolute Granulocytes 10.28 H Basophils # 0.04 Sodium 133 L Potassium 4.1 Chloride 105 Carbon Dioxide 21 L Anion Gap 11.5 BUN 15 Creatinine 0.83 Estimated GFR > 60.0 Glucose 121 H Lactic Acid Calcium 8.8 Total Bilirubin 1.10 AST 28 ALT 30 Alkaline Phosphatase 75 Troponin I Serum Total Protein 7.3 Albumin 4.4 Lipase 50 Urinalys Dipstick Clnc Urine Color Urine Appearance Urine pH Ur Specific Bear POC Urine Protein Conf Urine Ketones Urine Nitrite Urine Bilirubin Urine Urobilinogen Urine Leukocytes Urine WBC (Auto) Urine RBC (Auto) U Epithel Cells (Auto) Urine Bacteria (Auto) Urine RBC Ur Culture Indicated? Urine Glucose Influenza Type A Ag Influenza Type B Ag RSV (PCR) SARS-CoV-2 (PCR) Orders (Last 24 hours) Category Date Time Status Bedrest ROUTINE Activity 08/11/22 12:35 Active Code Status Order ROUTINE Care 08/11/22 12:35 Active Code Status Order ROUTINE Care 08/11/22 12:35 Active IV Care Q6H Care 08/11/22 12:35 Active IV Insertion STAT Care 08/11/22 09:12 Completed Miscellaneous Nursing Order ROUTINE Care 08/11/22 19:13 Active Neuro Checks Q4H Care 08/11/22 12:[address] in Observation ROUTINE Care 08/11/22 12:35 Active Telemetry q6h Care 08/11/22 12:35 Active Consult Surgery ROUTINE Cons 08/11/22 12:35 Active Factory Laborer/Discharge Plan ROUTINE Cons 08/11/22 14:12 Active NPO Diet 08/11/22 11:24 Active ABDOMEN AND PELVIS W/0 CONTRAS [CT] Stat Exams 08/11/22 09:48 Completed CBC W DIFF AM.LAB Lab 08/12/22 04:00 Ordered CBC W DIFF Stat Lab 08/11/22 09:05 Completed CMP AM.LAB Lab 08/12/22 04:00 Ordered CMP Stat Lab 08/11/22 09:05 Completed COVID/FLU/RSV Panel Stat Lab 08/11/22 10:07 Completed LIPASE Stat Lab 08/11/22 09:05 Completed Lactic Acid Stat Lab 08/11/22 09:12 Completed TROPONIN Q4H Lab 08/11/22 09:05 Completed TROPONIN Q4H Lab 08/11/22 13:03 Completed TROPONIN Q4H Lab 08/11/22 16:50 Completed UA W/RFX CULTURE Stat Lab 08/11/22 10:20 Completed Acetaminophen 500 mg [Tylenol Extra Strength 500 mg* Med 08/11/22 17:26 Active ] 1,000 mg PO Q6HPRN PRN Enoxaparin Sodium [Enoxaparin Sodium] Med 08/11/22 20:00 Active 150 mg SQ Q12H Hydromorphone 1 mg/1Ml Inj [Hydromorphone 1 mg/ml Med 08/11/22 11:24 Discontinued Injection] 1 mg .ROUTE .STK-MED ONE Hydromorphone 1 mg/1Ml Inj [Hydromorphone 1 mg/ml Med 08/11/22 12:35 Active Injection] 1 mg IV Q4H PRN PRN Hydromorphone 1 mg/1Ml Inj [Hydromorphone 1 mg/ml Med 08/11/22 11:08 Discontinued Injection] 1 mg IV STAT ONE Morphine Sulfate 2 mg Inj Med 08/11/22 09:20 Discontinued 2 mg .ROUTE .STK-MED ONE Morphine Sulfate 2 mg Inj Med 08/11/22 09:12 Discontinued 2 mg IV STAT ONE Morphine Sulfate 4 mg Inj Med 08/11/22 10:17 Discontinued 4 mg .ROUTE .STK-MED ONE Morphine Sulfate 4 mg Inj Med 08/11/22 09:58 Discontinued 4 mg IV STAT ONE Morphine Sulfate 4 mg Inj Med 08/11/22 11:05 Discontinued 4 mg IV STAT ONE NaCl 0.9% 100 ml Mini-Bag Plus [Sodium Chloride 100ML Med 08/11/22 10:39 Discontinued MINI-BAG PLUS] 100 ml IV UD NaCl 0.9% 1000 ml [Sodium Chloride 0.9% 1000 ML] 1,000 Med 08/11/22 09:20 Discontinued ml .ROUTE UD NaCl 0.9% 1000 ml [Sodium Chloride 0.9% 1000 ML] 1,000 Med 08/11/22 12:35 Active ml IV 150 mls/hr NaCl 0.9% 1000 ml [Sodium Chloride 0.9% 1000 ML] 1,000 Med 08/11/22 09:12 Discontinued ml IV 999 mls/hr Piperacillin/Tazobactam 3.375G [Piperacillin/Tazobactam Med 08/11/22 10:37 Discontinued ] 3.375 gm IV .STK-MED ONE Piperacillin/Tazobactam 3.375G [Piperacillin/Tazobactam Med 08/11/22 12:35 Discontinued ] 3.375 gm NaCl 0.9% 100 ml Mini-Bag Plus [Sodium Chloride 100ML MINI-BAG PLUS] 100 ml IV Q6HT Piperacillin/Tazobactam 3.375G [Piperacillin/Tazobactam Med 08/11/22 18:00 Active ] 3.375 gm NaCl 0.9% 100 ml Mini-Bag Plus [Sodium Chloride 100ML MINI-BAG PLUS] 100 ml IV Q6HT Piperacillin/Tazobactam 3.375G [Piperacillin/Tazobactam Med 08/11/22 10:28 Discontinued ] 3.375 gm NaCl 0.9% 100 ml Mini-Bag Plus [Sodium Chloride 100ML MINI-BAG PLUS] 100 ml IV STAT Pulse Oximetry CONTINUOUS RT 08/11/22 12:35 Active Transfer Order Routine Transfer 08/11/22 Completed Patient Care Notes (Last 24 hours) 08/11/22 19:20 Nursing Note by Clifton Blancas Dr rounded on pt for consult. No surgical procedure planned currently. Pt may have ice chips and necessary PO meds. Continue to hold eliquis but put pt on full anticoagulation dose of lovenox. Also Dr Landry stated that NG tube is not needed at this time asd pt has had no vomiting or nausea. Initialized on 08/11/22 19:20 - END OF NOTE 08/11/22 19:07 Nursing Note by Lisbet Mariee DR. ROUNDED ON PATIENT Initialized on 08/11/22 19:07 - END OF NOTE 08/11/22 12:51 (created 08/11/22 12:59) Nursing Note by Lisbet Mariee CALLED SX CONSULT ([facility]) Initialized on 08/11/22 12:59 - END OF NOTE Code(s): K57.40 - DVTRCLI OF BOTH SMALL AND LG INT W PERF AND ABSCS W/O BLEED
[2022-08-11] MEDS: ENOXAPARIN SODIUM SQ SCH (22:09)
[2022-08-12] MEDS: PIPERACILLIN/TAZOBACTAM 3.375 GM in Sodium Chloride 100ML MINI-BAG PLUS 100 ML IV SCH ×4 (00:14→17:52)
[2022-08-12] MEDS: Hydromorphone 1 mg/ml Injection IV PRN ×6 (01:55→20:57)
[2022-08-12 04:38] LABS: Absolute Neutrophil Ct (ANC) 10.85 x10^3/uL (1.4-6.9); Basophil (Absolute #) 0.02 x10^3/uL (0-0.4); Eosinophil % 0.1 % (0.00-5.0); Eosinophil (Absolute #) 0.02 x10^3/uL (0-0.5); Hemoglobin 14.3 g/dL (12.5-18.0); Lymphocyte (Absolute #) 1.75 x10^3/uL (1.0-4.6); Lymphocytes % 12.7 % (24.0-44.0); Mean Cell Volume 88.7 fL (78-100); Mean Corpuscular Hemoglobin 29.5 pg (26-32); Mean Corpuscular Hgb Concent. 33.3 g/dL (32-36); Mean Platelet Volume 9.5 fL (7.5-11.0); Monocyte (Absolute #) 1.06 x10^3/uL (0.0-1.3); Monocytes % 7.7 % (0.0-12.0); Neutrophil % 79.1 % (36.0-66.0); Platelet Count 162 x10^3/uL (150-450); Red Blood Count 4.85 x10^6/uL (4.1-5.6); Red Cell Distribution Width 13.3 % (11.5-14.0); White Blood Count 13.7 x10^3/uL (4.0-10.5)
[2022-08-12 05:02] LABS: ALBUMIN 3.7 g/dL (3.5-5.0); ALKALINE PHOSPHATASE 53 U/L (38-126); BLOOD UREA NITROGEN 16 mg/dL (9-20); CHLORIDE 103 mmol/L (98-107); Calcium 8.1 mg/dL (8.4-10.2); Carbon Dioxide 27 mmol/L (22-30); Creatinine 1 1.14 mg/dL (0.66-1.25); EST GLOMERULAR FILTRATION RATE > 60.0 ML/MIN; Glucose 101 mg/dL (74-106); Potassium 4.2 mmol/L (3.5-5.1); SGOT/AST 21 U/L (17-59); SGPT/ALT 23 U/L (0-50); SODIUM 134 mmol/L (137-145); Total Protein 6.6 g/dL (6.3-8.2)
[2022-08-12] MEDS: Sodium Chloride 0.9% 1000 ML 1,000 ML IV SCH ×2 (05:51→17:06)
[2022-08-12] MEDS ORDERED: Mylicon 80MG PO PRN ×2 (06:54→07:00)
[2022-08-12] MEDS ORDERED: Mylicon 80MG ONE (06:57)
[2022-08-12] MEDS: TYLENOL EXTRA STRENGTH 500 MG PO PRN (08:12)
--- NOTE | 2022-08-12 09:18 | CONS ---
CONSULT DATE: 08/11/2022 HISTORY: The patient is a 46-year-old gentleman who had lower abdominal pain and pressure. He has not had any prior abdominal surgeries. He denied any prior colonoscopy. He came in and had CT scan show some diverticulitis, had question of little tiny bubbles of air possible microperforation. He did not have any mass or free air. He did not have any collections in his vein. PAST MEDICAL HISTORY: Factor V Leiden. Deep vein thrombosis. He has been on Eliquis. History of pulmonary embolism in the past. He has been overweight. He denied any chronic heart disease. PAST SURGICAL HISTORY: Right eye tear duct surgery in the past. He denied any abdominal surgery. Denied prior colonoscopy. HOME MEDICATIONS: Eliquis. ALLERGIES: NKDA. FAMILY HISTORY: Negative in regards to this specific problem. SOCIAL HISTORY: Former smoker. No alcohol abuse. REVIEW OF SYSTEMS: Fourteen systems reviewed per admission assessment. PHYSICAL EXAMINATION: GENERAL: Slightly uncomfortable but he said he is feeling much better this evening than he was earlier today. He has a little pressure lower abdomen. HEENT: Sclera nonicteric. NECK: No JVD. CHEST: Equal excursion, nonlabored breathing. CVS: Regular rhythm and pulse. ABDOMEN: Soft, obese. He had some mild tenderness in left lower quadrant. No peritoneal signs currently. EXTREMITIES: No cyanosis. NEURO: Alert. PSYCH: Appropriate mood and affect. LAB DATA AND TESTS: The CT scan report and his films were personally reviewed by myself. His troponins are negative. He did have the reported white count I think said was 12.9, hemoglobin okay, platelets okay. Liver function test unremarkable. Lipase normal. Labs were personally reviewed by myself. A good hour was spent with the patient with a combination of face to face and labs, history studies as well as personally reviewing the CT scan. IMPRESSION: Acute right lower quadrant pain. CT findings, leukocytosis, suggestion of acute diverticulitis possible microperforation. I do not feel he needs any emergent surgery. I feel he warrants continued conservative management, bowel rest, IV hydration, IV antibiotics. He can have ice chips now. Wait until his pain improves further before starting on clear liquids. He understands if he deteriorates and significantly worsens, he may need consideratin of more emergent laparotomy which could include resection and ostomy temporarily. He understands if he continues to improve, he can transition to oral antibiotics at the time of discharge possibly in another two to four days depending on how he does. He will need elective colonoscope maybe six to [address] to make sure there is no other etiology. He understands and agrees to the plan. At this time he does not need emergent surgery. I will call and check on him tomorrow. If he is improving then Dr. Velazquez will re-evaluate him on .
[2022-08-12] MEDS: ENOXAPARIN SODIUM SQ SCH ×2 (10:21→21:00)
--- NOTE | 2022-08-12 17:33 | PCM.NOTE ---
Date and Time: 08/12/221730 Subjective Assessment: doing little better. Tolerating Ice Chips - Review of Systems Constitutional: No Fever, No Chills Eyes: No Symptoms Ears, Nose, & Throat: No Symptoms Respiratory: No Cough, No Short Of Breath Cardiac: No Chest Pain, No Edema, No Syncope Abdominal/Gastrointestinal: Abdominal Pain, No Nausea, No Vomiting, No Diarrhea Genitourinary Symptoms: No Dysuria Musculoskeletal: No Back Pain, No Neck Pain Skin: No Rash Neurological: No Dizziness, No Focal Weakness, No Sensory Changes Psychological: No Symptoms Endocrine: No Symptoms Hematologic/Lymphatic: No Symptoms Immunological/Allergic: No Symptoms Objective Exam General Appearance: no apparent distress, alert Neurologic Exam: alert, oriented x 3, cooperative, normal mood/affect, nml cerebellar function, sensation nml, No motor deficits Skin Exam: normal color, warm, dry Eye Exam: PERRL, EOMI, eyes nml inspection Ears, Nose, Throat Exam: normal ENT inspection, pharynx normal, moist mucous membranes Neck Exam: normal inspection, non-tender, supple, full range of motion Respiratory Exam: normal breath sounds, lungs clear, No respiratory distress Cardiovascular Exam: regular rate/rhythm, normal heart sounds Gastrointestinal/Abdomen Exam: tenderness, distention, No normal bowel sounds, No mass Extremity Exam: normal inspection, normal range of motion Back Exam: normal inspection, normal range of motion, No CVA tenderness, No vertebral tenderness Male Genitalia Exam: deferred Rectal Exam: deferred OBJECTIVE DATA Vital Signs: Vital Signs - 24 hr Temp Pulse Resp BP Pulse Ox 08/12/22 16:00 98.7 F 89 18 121/69 92 L 08/12/22 11:28 98.3 F 88 18 90/52 91 L 08/12/22 07:29 97.3 F 97 H 17 120/67 99 08/12/22 07:07 97 08/12/22 04:00 97.2 F 85 18 119/74 95 08/11/22 23:37 97.5 F 97 H 18 123/74 96 08/11/22 20:00 98.1 F 91 H 18 113/74 93 L 08/11/22 19:28 99 Pain Assessment - Last Documented Pain Intensity 5 Pain Scale Used 0-10 Pain Scale Intake and Output: Intake & Output 08/10/22 08/11/22 08/12/22 08/13/22 11:59 11:59 11:59 11:59 Intake Total 2120 1054 Output Total 1200 Balance 1174 1054 Weight 151.953 kg 150.5 kg Lab Results: Lab Results-Last 24 Hours 08/11/22 08/12/22 08/12/22 Range/Units 16:50 04:30 04:30 WBC 13.7 H (4.0-10.5) x10^3/uL RBC 4.85 (4.1-5.6) x10^6/uL Hgb 14.3 (12.5-18.0) g/dL Hct 43.0 (42-50) % MCV 88.7 (78-100) fL MCH 29.5 (26-32) pg MCHC 33.3 (32-36) g/dL RDW 13.3 (11.5-14.0) % Plt Count 162 (150-450) x10^3/uL MPV 9.5 (7.5-11.0) fL Gran % 79.1 H (36.0-66.0) % Immature Gran % (Auto) 0.3 (0.00-0.4) % Nucleat RBC Rel Count 0.0 (0.00-0.1) % Eos # (Auto) 0.02 (0-0.5) x10^3/uL Immature Gran # (Auto) 0.04 H (0.00-0.03) x10^3u/L Absolute Lymphs (auto) 1.75 (1.0-4.6) x10^3/uL Absolute Monos (auto) 1.06 (0.0-1.3) x10^3/uL Absolute Nucleated RBC 0.00 (0.00-0.01) x10^3u/L Lymphocytes % 12.7 L (24.0-44.0) % Monocytes % 7.7 (0.0-12.0) % Eosinophils % 0.1 (0.00-5.0) % Basophils % 0.1 (0.0-0.4) % Absolute Granulocytes 10.85 H (1.4-6.9) x10^3/uL Basophils # 0.02 (0-0.4) x10^3/uL Sodium 134 L (137-145) mmol/L Potassium 4.2 (3.5-5.1) mmol/L Chloride 103 (98-107) mmol/L Carbon Dioxide 27 (22-30) mmol/L Anion Gap 9.0 (5-15) MEQ/L BUN 16 (9-20) mg/dL Creatinine 1.14 (0.66-1.25) mg/dL Estimated GFR > 60.0 ML/MIN Glucose 101 (74-106) mg/dL Calcium 8.1 L (8.4-10.2) mg/dL Total Bilirubin 2.20 H (0.2-1.3) mg/dL AST 21 (17-59) U/L ALT 23 (0-50) U/L Alkaline Phosphatase 53 (38-126) U/L Troponin I < 0.012 (0.000-0.034) ng/mL Serum Total Protein 6.6 (6.3-8.2) g/dL Albumin 3.7 (3.5-5.0) g/dL Radiology Exams: Radiology Procedures Category Date Time Status ABDOMEN AND PELVIS W/0 CONTRAS [CT] Stat Exams 08/11/22 09:48 Completed Assessment/Plan (1) Diverticular disease of both small and large intestine with perforation and abscess Current Visit: Yes Status: Acute Assessment & Plan: Chief Complaint Diagnosis abdominal pain for 1 day Allergies Allergy/AdvReac Type Severity Reaction Status Date / Time No Known Drug Allergies Allergy Verified 08/11/22 08:59 Vital Signs (Last 24 hours) Temp Pulse Resp BP Pulse Ox 08/12/22 16:00 98.7 F 89 18 121/69 92 L 08/12/22 11:28 98.3 F 88 18 90/52 91 L 08/12/22 07:29 97.3 F 97 H 17 120/67 99 08/12/22 07:07 97 08/12/22 04:00 97.2 F 85 18 119/74 95 08/11/22 23:37 97.5 F 97 H 18 123/74 96 08/11/22 20:00 98.1 F 91 H 18 113/74 93 L 08/11/22 19:28 99 Home Medications Medication Instructions Recorded Confirmed Last Taken Type Acetaminophen 500 mg [Tylenol 2 - 3 tab PO Q4-6HPRN PRN 08/11/22 08/11/22 Unknown History Extra Strength 500 mg] Apixaban [Eliquis 5 mg 5 mg PO BID 08/11/22 08/11/22 08/11/22 History Tablet] 5 Current Medications Generic Name Dose Route Start Last Admin Trade Name Hubert PRN Reason Stop Dose Admin Acetaminophen 1,000 mg 08/11/22 17:26 08/12/22 08:12 Acetaminophen 500 Mg Tablet PO 09/10/22 17:25 1,000 mg Q6HPRN PRN Administration PAIN AND/OR FEVER Enoxaparin Sodium 150 mg 08/11/22 20:00 08/12/22 10:21 Enoxaparin Sodium 150 Mg/Ml Syringe SQ 09/10/22 19:59 150 mg Q12H LURDES Administration Hydromorphone HCl 1 mg 08/12/22 01:44 08/12/22 14:26 Hydromorphone 1 Mg/1ml Inj 1 Mg/Ml Syringe IV 08/17/22 01:41 1 mg Q3H PRN PRN Administration PAIN Sodium Chloride 1,000 mls @ 150 mls/hr 08/11/22 12:35 08/12/22 17:06 Sodium Chloride 0.9% 1000 Ml IV 09/10/22 12:34 100 mls/hr .Q6H40M LURDES Administration Piperacillin Sod/Tazobactam 100 mls @ 200 mls/hr 08/11/22 18:00 08/12/22 12:15 Sod 3.375 gm/ Sodium Chloride IV 08/14/22 17:59 200 mls/hr Q6HT LURDES Administration Simethicone 160 mg 08/12/22 07:00 08/12/22 16:15 Simethicone 80 Mg Tab.Chew PO 09/11/22 06:53 160 mg QID PRN PRN Administration gas Discontinued Medications Generic Name Dose Route Start Last Admin Trade Name Freq PRN Reason Stop Dose Admin Hydromorphone HCl 1 mg 08/11/22 11:08 08/11/22 11:24 Hydromorphone 1 Mg/1ml Inj 1 Mg/Ml Syringe IV 08/11/22 11:09 1 mg STAT ONE Administration Hydromorphone HCl Confirm 08/11/22 11:24 Hydromorphone 1 Mg/1ml Inj 1 Mg/Ml Syringe Administered 08/11/22 11:25 Dose 1 mg .ROUTE .STK-MED ONE Hydromorphone HCl 1 mg 08/11/22 12:35 08/11/22 22:09 Hydromorphone 1 Mg/1ml Inj 1 Mg/Ml Syringe IV 08/16/22 12:34 1 mg Q4H PRN PRN Administration PAIN Sodium Chloride 1,000 mls @ 999 mls/hr 08/11/22 09:12 08/11/22 10:25 Sodium Chloride 0.9% 1000 Ml IV 08/11/22 10:12 Infused .Q1H1M STA Infusion Sodium Chloride Confirm 08/11/22 09:20 Sodium Chloride 0.9% 1000 Ml Administered 08/11/22 09:21 Dose 1,000 mls @ ud .ROUTE .STK-MED ONE Piperacillin Sod/Tazobactam 100 mls @ 200 mls/hr 08/11/22 10:28 08/11/22 10:41 Sod 3.375 gm/ Sodium Chloride IV 08/11/22 10:57 200 mls/hr STAT ONE Administration Sodium Chloride Confirm 08/11/22 10:39 Sodium Chloride 100ml Mini-Bag Plus Administered 08/11/22 10:40 Dose 100 mls @ ud IV .STK-MED ONE Piperacillin Sod/Tazobactam 100 mls @ 200 mls/hr 08/11/22 12:35 08/11/22 14:16 Sod 3.375 gm/ Sodium Chloride IV 08/14/22 12:34 Not Given Q6HT LURDES Morphine Sulfate 2 mg 08/11/22 09:12 08/11/22 09:22 Morphine Sulfate 2 Mg/Ml Inj IV 08/11/22 09:13 2 mg STAT ONE Administration Morphine Sulfate Confirm 08/11/22 09:20 Morphine Sulfate 2 Mg/Ml Inj Administered 08/11/22 09:21 Dose 2 mg .ROUTE .STK-MED ONE Morphine Sulfate 4 mg 08/11/22 09:58 08/11/22 10:17 Morphine Sulfate 4 Mg/Ml Injection IV 08/11/22 09:59 4 mg STAT ONE Administration Morphine Sulfate Confirm 08/11/22 10:17 Morphine Sulfate 4 Mg/Ml Injection Administered 08/11/22 10:18 Dose 4 mg .ROUTE .STK-MED ONE Morphine Sulfate 4 mg 08/11/22 11:05 08/11/22 11:08 Morphine Sulfate 4 Mg/Ml Injection IV 08/11/22 11:06 Not Given STAT ONE Piperacillin Sod/Tazobactam Sod Confirm 08/11/22 10:37 Piperacillin/Tazobactam Sodium 3.375 Gm Vial Administered 08/11/22 10:38 Dose 3.375 gm IV .STK-MED ONE Simethicone 180 mg 08/12/22 06:54 08/12/22 06:58 Simethicone 80 Mg Tab.Chew PO 09/11/22 06:53 160 mg QID PRN PRN Administration gas Simethicone Confirm 08/12/22 06:57 Simethicone 80 Mg Tab.Chew Administered 08/12/22 06:58 Dose 160 mg .ROUTE .STK-MED ONE Intake & Output (Last 24 hours) 08/10/22 08/11/22 08/12/22 08/13/22 11:59 11:59 11:59 11:59 Intake Total 2374 1054 Output Total 1200 Balance 1174 1054 Weight 151.953 kg 150.5 kg Laboratory Results (Last 24 hours) 08/12/22 08/12/22 04:30 04:30 WBC 13.7 H RBC 4.85 Hgb 14.3 Hct 43.0 MCV 88.7 MCH 29.5 MCHC 33.3 RDW 13.3 Plt Count 162 MPV 9.5 Gran % 79.1 H Immature Gran % (Auto) 0.3 Nucleat RBC Rel Count 0.0 Eos # (Auto) 0.02 Immature Gran # (Auto) 0.04 H Absolute Lymphs (auto) 1.75 Absolute Monos (auto) 1.06 Absolute Nucleated RBC 0.00 Lymphocytes % 12.7 L Monocytes % 7.7 Eosinophils % 0.1 Basophils % 0.1 Absolute Granulocytes 10.85 H Basophils # 0.02 Sodium 134 L Potassium 4.2 Chloride 103 Carbon Dioxide 27 Anion Gap 9.0 BUN 16 Creatinine 1.14 Estimated GFR > 60.0 Glucose 101 Calcium 8.1 L Total Bilirubin 2.20 H AST 21 ALT 23 Alkaline Phosphatase 53 Serum Total Protein 6.6 Albumin 3.7 Orders (Last 24 hours) Category Date Time Status Miscellaneous Nursing Order ROUTINE Care 08/11/22 19:13 Active CBC W DIFF AM.LAB Lab 08/12/22 04:30 Completed CMP AM.LAB Lab 08/12/22 04:30 Completed TROPONIN Q4H Lab 08/11/22 16:50 Completed Acetaminophen 500 mg [Tylenol Extra Strength 500 mg* Med 08/11/22 17:26 Active ] 1,000 mg PO Q6HPRN PRN Enoxaparin Sodium [Enoxaparin Sodium] Med 08/11/22 20:00 Active 150 mg SQ Q12H Hydromorphone 1 mg/1Ml Inj [Hydromorphone 1 mg/ml Med 08/12/22 01:44 Active Injection] 1 mg IV Q3H PRN PRN Piperacillin/Tazobactam 3.375G [Piperacillin/Tazobactam Med 08/11/22 18:00 Active ] 3.375 gm NaCl 0.9% 100 ml Mini-Bag Plus [Sodium Chloride 100ML MINI-BAG PLUS] 100 ml IV Q6HT Simethicone 80 mg [Mylicon 80MG] Med 08/12/22 06:57 Discontinued 160 mg .ROUTE .STK-MED ONE Simethicone 80 mg [Mylicon 80MG] Med 08/12/22 07:00 Active 160 mg PO QID PRN PRN Simethicone 80 mg [Mylicon 80MG] Med 08/12/22 06:54 Discontinued 180 mg PO QID PRN PRN Incentive Spirometry UD RT 08/11/22 22:57 Completed Patient Care Notes (Last 24 hours) 08/12/22 07:31 Nursing Note by Estefany Goel 0620 pt requesting " gas x " for Gas pains, notifed, order recd Initialized on 08/12/22 07:31 - END OF NOTE 08/11/22 19:20 Nursing Note by Clifton Blancas Dr rounded on pt for consult. No surgical procedure planned currently. Pt may have ice chips and necessary PO meds. Continue to hold eliquis but put pt on full anticoagulation dose of lovenox. Also Dr Landry stated that NG tube is not needed at this time asd pt has had no vomiting or nausea. Initialized on 08/11/22 19:20 - END OF NOTE 08/11/22 19:07 Nursing Note by Lisbet Mariee DR. ROUNDED ON PATIENT Initialized on 08/11/22 19:07 - END OF NOTE Code(s): K57.40 - DVTRCLI OF BOTH SMALL AND LG INT W PERF AND ABSCS W/O BLEED
--- NOTE | 2022-08-12 17:55 | PCM.NOTE ---
Date and Time: 08/12/221752 Subjective Assessment: no acute issues overnight. pain a little better. no n/v. + flatus. + loose stool. did get up OOB to shower. Objective Exam Comments: 08/12/22 17:53 nad nonlabroed resps rrr obese, nd, soft, ttp llq localized guarding. no rebound. no edema OBJECTIVE DATA Vital Signs: Vital Signs - 24 hr Temp Pulse Resp BP Pulse Ox 08/12/22 16:00 98.7 F 89 18 121/69 92 L 08/12/22 11:28 98.3 F 88 18 90/52 91 L 08/12/22 07:29 97.3 F 97 H 17 120/67 99 08/12/22 07:07 97 08/12/22 04:00 97.2 F 85 18 119/74 95 08/11/22 23:37 97.5 F 97 H 18 123/74 96 08/11/22 20:00 98.1 F 91 H 18 113/74 93 L 08/11/22 19:28 99 Pain Assessment - Last Documented Pain Intensity 7 Pain Scale Used 0-10 Pain Scale Intake and Output: Intake & Output 08/10/22 08/11/22 08/12/22 08/13/22 11:59 11:59 11:59 11:59 Intake Total 2374 1054 Output Total 1200 Balance 1174 1054 Weight 151.953 kg 150.5 kg Lab Results: Lab Results-Last 24 Hours 08/12/22 08/12/22 Range/Units 04:30 04:30 WBC 13.7 H (4.0-10.5) x10^3/uL RBC 4.85 (4.1-5.6) x10^6/uL Hgb 14.3 (12.5-18.0) g/dL Hct 43.0 (42-50) % MCV 88.7 (78-100) fL MCH 29.5 (26-32) pg MCHC 33.3 (32-36) g/dL RDW 13.3 (11.5-14.0) % Plt Count 162 (150-450) x10^3/uL MPV 9.5 (7.5-11.0) fL Gran % 79.1 H (36.0-66.0) % Immature Gran % (Auto) 0.3 (0.00-0.4) % Nucleat RBC Rel Count 0.0 (0.00-0.1) % Eos # (Auto) 0.02 (0-0.5) x10^3/uL Immature Gran # (Auto) 0.04 H (0.00-0.03) x10^3u/L Absolute Lymphs (auto) 1.75 (1.0-4.6) x10^3/uL Absolute Monos (auto) 1.06 (0.0-1.3) x10^3/uL Absolute Nucleated RBC 0.00 (0.00-0.01) x10^3u/L Lymphocytes % 12.7 L (24.0-44.0) % Monocytes % 7.7 (0.0-12.0) % Eosinophils % 0.1 (0.00-5.0) % Basophils % 0.1 (0.0-0.4) % Absolute Granulocytes 10.85 H (1.4-6.9) x10^3/uL Basophils # 0.02 (0-0.4) x10^3/uL Sodium 134 L (137-145) mmol/L Potassium 4.2 (3.5-5.1) mmol/L Chloride 103 (98-107) mmol/L Carbon Dioxide 27 (22-30) mmol/L Anion Gap 9.0 (5-15) MEQ/L BUN 16 (9-20) mg/dL Creatinine 1.14 (0.66-1.25) mg/dL Estimated GFR > 60.0 ML/MIN Glucose 101 (74-106) mg/dL Calcium 8.1 L (8.4-10.2) mg/dL Total Bilirubin 2.20 H (0.2-1.3) mg/dL AST 21 (17-59) U/L ALT 23 (0-50) U/L Alkaline Phosphatase 53 (38-126) U/L Serum Total Protein 6.6 (6.3-8.2) g/dL Albumin 3.7 (3.5-5.0) g/dL Radiology Exams: Radiology Procedures Category Date Time Status ABDOMEN AND PELVIS W/0 CONTRAS [CT] Stat Exams 08/11/22 09:48 Completed Assessment/Plan (1) Diverticulitis Current Visit: Yes Status: Acute Assessment & Plan: 46yo male with diverticulitis localized air outside the colon. clinically a little improvement, still pretty tende.r -continue with bowel rest, abx, IVF> -await improved physical exam to start PO liquids. if failing to progress in a couple more days might repeat a ct. Code(s): K57.92 - DVTRCLI OF INTEST, PART UNSP, W/O PERF OR ABSCESS W/O BLEED
[2022-08-13] MEDS: Hydromorphone 1 mg/ml Injection IV PRN ×4 (00:05→23:35)
[2022-08-13] MEDS: PIPERACILLIN/TAZOBACTAM 3.375 GM in Sodium Chloride 100ML MINI-BAG PLUS 100 ML IV SCH ×5 (00:05→23:29)
[2022-08-13] MEDS: Sodium Chloride 0.9% 1000 ML 1,000 ML IV SCH ×2 (04:18→19:53)
[2022-08-13] MEDS: ENOXAPARIN SODIUM SQ SCH ×2 (08:23→20:55)
[2022-08-13] MEDS: TYLENOL EXTRA STRENGTH 500 MG PO PRN ×2 (09:23→21:01)
[2022-08-13 10:40] LABS: Hematocrit 42.8 % (42-50); Hemoglobin 14.3 g/dL (12.5-18.0); Mean Cell Volume 87.2 fL (78-100); Mean Corpuscular Hemoglobin 29.1 pg (26-32); Mean Corpuscular Hgb Concent. 33.4 g/dL (32-36); Mean Platelet Volume 9.4 fL (7.5-11.0); Platelet Count 177 x10^3/uL (150-450); Red Blood Count 4.91 x10^6/uL (4.1-5.6); Red Cell Distribution Width 12.7 % (11.5-14.0); White Blood Count 8.8 x10^3/uL (4.0-10.5)
[2022-08-13 11:16] LABS: ALBUMIN 3.6 g/dL (3.5-5.0); ALKALINE PHOSPHATASE 63 U/L (38-126); ANION GAP 11.4 MEQ/L (5-15); BLOOD UREA NITROGEN 15 mg/dL (9-20); CHLORIDE 104 mmol/L (98-107); Calcium 8.2 mg/dL (8.4-10.2); Carbon Dioxide 23 mmol/L (22-30); Creatinine 1 0.82 mg/dL (0.66-1.25); EST GLOMERULAR FILTRATION RATE > 60.0 ML/MIN; Glucose 81 mg/dL (74-106); SGOT/AST 19 U/L (17-59); SGPT/ALT 22 U/L (0-50); SODIUM 134 mmol/L (137-145); Total Protein 6.3 g/dL (6.3-8.2)
--- NOTE | 2022-08-13 17:27 | PCM.NOTE ---
Date and Time: 08/13/221725 Subjective Assessment: doing better - Review of Systems Constitutional: No Fever, No Chills Eyes: No Symptoms Ears, Nose, & Throat: No Symptoms Respiratory: No Cough, No Short Of Breath Cardiac: No Chest Pain, No Edema, No Syncope Abdominal/Gastrointestinal: No Abdominal Pain, No Nausea, No Vomiting, No Diarrhea Genitourinary Symptoms: No Dysuria Musculoskeletal: No Back Pain, No Neck Pain Skin: No Rash Neurological: No Dizziness, No Focal Weakness, No Sensory Changes Psychological: No Symptoms Endocrine: No Symptoms Hematologic/Lymphatic: No Symptoms Immunological/Allergic: No Symptoms Objective Exam General Appearance: no apparent distress, alert Neurologic Exam: alert, oriented x 3, cooperative, normal mood/affect, nml cerebellar function, sensation nml, No motor deficits Skin Exam: normal color, warm, dry Eye Exam: PERRL, EOMI, eyes nml inspection Ears, Nose, Throat Exam: normal ENT inspection, pharynx normal, moist mucous membranes Neck Exam: normal inspection, non-tender, supple, full range of motion Respiratory Exam: normal breath sounds, lungs clear, No respiratory distress Cardiovascular Exam: regular rate/rhythm, normal heart sounds Gastrointestinal/Abdomen Exam: soft, No tenderness, No mass Extremity Exam: normal inspection, normal range of motion Back Exam: normal inspection, normal range of motion, No CVA tenderness, No vertebral tenderness Male Genitalia Exam: deferred Rectal Exam: deferred OBJECTIVE DATA Vital Signs: Vital Signs - 24 hr Temp Pulse Resp BP Pulse Ox 08/13/22 16:00 97.5 F 80 16 138/82 96 08/13/22 11:27 97.1 F 81 18 121/58 100 08/13/22 07:28 97.5 F 85 16 110/63 95 08/13/22 06:16 100 08/13/22 03:45 97.1 F 81 18 119/70 99 08/12/22 23:33 97.8 F 81 18 111/68 100 08/12/22 20:00 97.3 F 86 16 106/63 91 L 08/12/22 19:42 100 Pain Assessment - Last Documented Pain Intensity 0 Pain Scale Used 0-10 Pain Scale Intake and Output: Intake & Output 08/11/22 08/12/22 08/13/22 08/14/22 11:59 11:59 11:59 11:59 Intake Total 2374 2560 Output Total 1200 1100 Balance 1174 1460 Weight 151.953 kg 150.5 kg Lab Results: Lab Results-Last 24 Hours 08/13/22 08/13/22 Range/Units 10:39 10:39 WBC 8.8 (4.0-10.5) x10^3/uL RBC 4.91 (4.1-5.6) x10^6/uL Hgb 14.3 (12.5-18.0) g/dL Hct 42.8 (42-50) % MCV 87.2 (78-100) fL MCH 29.1 (26-32) pg MCHC 33.4 (32-36) g/dL RDW 12.7 (11.5-14.0) % Plt Count 177 (150-450) x10^3/uL MPV 9.4 (7.5-11.0) fL Sodium 134 L (137-145) mmol/L Potassium 4.0 (3.5-5.1) mmol/L Chloride 104 (98-107) mmol/L Carbon Dioxide 23 (22-30) mmol/L Anion Gap 11.4 (5-15) MEQ/L BUN 15 (9-20) mg/dL Creatinine 0.82 (0.66-1.25) mg/dL Estimated GFR > 60.0 ML/MIN Glucose 81 (74-106) mg/dL Calcium 8.2 L (8.4-10.2) mg/dL Total Bilirubin 2.20 H (0.2-1.3) mg/dL AST 19 (17-59) U/L ALT 22 (0-50) U/L Alkaline Phosphatase 63 (38-126) U/L Serum Total Protein 6.3 (6.3-8.2) g/dL Albumin 3.6 (3.5-5.0) g/dL Multi-Disciplinary Progress Notes: Multi-Disciplinary Progress Notes 08/13/22 12:05 Case Management Note by Divine Velásquez S/W PATIENT- HE CONTINUES TO DENY ANY NEW NEEDS AT TIME OF DC. 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 Current Visit: Yes Status: Acute Assessment & Plan: Chief Complaint Diagnosis DIVERTICULITIS WITH MICROPERFORATION Allergies Allergy/AdvReac Type Severity Reaction Status Date / Time No Known Drug Allergies Allergy Verified 08/11/22 08:59 Vital Signs (Last 24 hours) Temp Pulse Resp BP Pulse Ox 08/13/22 16:00 97.5 F 80 16 138/82 96 08/13/22 11:27 97.1 F 81 18 121/58 100 08/13/22 07:28 97.5 F 85 16 110/63 95 08/13/22 06:16 100 08/13/22 03:45 97.1 F 81 18 119/70 99 08/12/22 23:33 97.8 F 81 18 111/68 100 08/12/22 20:00 97.3 F 86 16 106/63 91 L 08/12/22 19:42 100 Home Medications Medication Instructions Recorded Confirmed Last Taken Type Acetaminophen 500 mg [Tylenol 2 - 3 tab PO Q4-6HPRN PRN 08/11/22 08/11/22 Unknown History Extra Strength 500 mg] Apixaban [Eliquis 5 mg 5 mg PO BID 08/11/22 08/11/22 08/11/22 History Tablet] 5 Current Medications Generic Name Dose Route Start Last Admin Trade Name Freq PRN Reason Stop Dose Admin Acetaminophen 1,000 mg 08/11/22 17:26 08/13/22 09:23 Acetaminophen 500 Mg Tablet PO 09/10/22 17:25 1,000 mg Q6HPRN PRN Administration PAIN AND/OR FEVER Enoxaparin Sodium 150 mg 08/11/22 20:00 08/13/22 08:23 Enoxaparin Sodium 150 Mg/Ml Syringe SQ 09/10/22 19:59 150 mg Q12H LURDES Administration Hydromorphone HCl 1 mg 08/12/22 01:44 08/13/22 06:08 Hydromorphone 1 Mg/1ml Inj 1 Mg/Ml Syringe IV 08/17/22 01:41 1 mg Q3H PRN PRN Administration PAIN Sodium Chloride 1,000 mls @ 150 mls/hr 08/11/22 12:35 08/13/22 04:18 Sodium Chloride 0.9% 1000 Ml IV 09/10/22 12:34 100 mls/hr .Q6H40M LURDES Administration Piperacillin Sod/Tazobactam 100 mls @ 200 mls/hr 08/11/22 18:00 08/13/22 12:17 Sod 3.375 gm/ Sodium Chloride IV 08/15/22 17:59 200 mls/hr Q6HT LURDES Administration Simethicone 160 mg 08/12/22 07:00 08/12/22 16:15 Simethicone 80 Mg Tab.Chew PO 09/11/22 06:53 160 mg QID PRN PRN Administration gas Discontinued Medications Generic Name Dose Route Start Last Admin Trade Name Freq PRN Reason Stop Dose Admin Hydromorphone HCl 1 mg 08/11/22 11:08 08/11/22 11:24 Hydromorphone 1 Mg/1ml Inj 1 Mg/Ml Syringe IV 08/11/22 11:09 1 mg STAT ONE Administration Hydromorphone HCl Confirm 08/11/22 11:24 Hydromorphone 1 Mg/1ml Inj 1 Mg/Ml Syringe Administered 08/11/22 11:25 Dose 1 mg .ROUTE .STK-MED ONE Hydromorphone HCl 1 mg 08/11/22 12:35 08/11/22 22:09 Hydromorphone 1 Mg/1ml Inj 1 Mg/Ml Syringe IV 08/16/22 12:34 1 mg Q4H PRN PRN Administration PAIN Sodium Chloride 1,000 mls @ 999 mls/hr 08/11/22 09:12 08/11/22 10:25 Sodium Chloride 0.9% 1000 Ml IV 08/11/22 10:12 Infused .Q1H1M STA Infusion Sodium Chloride Confirm 08/11/22 09:20 Sodium Chloride 0.9% 1000 Ml Administered 08/11/22 09:21 Dose 1,000 mls @ ud .ROUTE .STK-MED ONE Piperacillin Sod/Tazobactam 100 mls @ 200 mls/hr 08/11/22 10:28 08/11/22 10:41 Sod 3.375 gm/ Sodium Chloride IV 08/11/22 10:57 200 mls/hr STAT ONE Administration Sodium Chloride Confirm 08/11/22 10:39 Sodium Chloride 100ml Mini-Bag Plus Administered 08/11/22 10:40 Dose 100 mls @ ud IV .STK-MED ONE Piperacillin Sod/Tazobactam 100 mls @ 200 mls/hr 08/11/22 12:35 08/11/22 14:16 Sod 3.375 gm/ Sodium Chloride IV 08/14/22 12:34 Not Given Q6HT LURDES Morphine Sulfate 2 mg 08/11/22 09:12 08/11/22 09:22 Morphine Sulfate 2 Mg/Ml Inj IV 08/11/22 09:13 2 mg STAT ONE Administration Morphine Sulfate Confirm 08/11/22 09:20 Morphine Sulfate 2 Mg/Ml Inj Administered 08/11/22 09:21 Dose 2 mg .ROUTE .STK-MED ONE Morphine Sulfate 4 mg 08/11/22 09:58 08/11/22 10:17 Morphine Sulfate 4 Mg/Ml Injection IV 08/11/22 09:59 4 mg STAT ONE Administration Morphine Sulfate Confirm 08/11/22 10:17 Morphine Sulfate 4 Mg/Ml Injection Administered 08/11/22 10:18 Dose 4 mg .ROUTE .STK-MED ONE Morphine Sulfate 4 mg 08/11/22 11:05 08/11/22 11:08 Morphine Sulfate 4 Mg/Ml Injection IV 08/11/22 11:06 Not Given STAT ONE Piperacillin Sod/Tazobactam Sod Confirm 08/11/22 10:37 Piperacillin/Tazobactam Sodium 3.375 Gm Vial Administered 08/11/22 10:38 Dose 3.375 gm IV .STK-MED ONE Simethicone 180 mg 08/12/22 06:54 08/12/22 06:58 Simethicone 80 Mg Tab.Chew PO 09/11/22 06:53 160 mg QID PRN PRN Administration gas Simethicone Confirm 08/12/22 06:57 Simethicone 80 Mg Tab.Chew Administered 08/12/22 06:58 Dose 160 mg .ROUTE .STK-MED ONE Intake & Output (Last 24 hours) 08/11/22 08/12/22 08/13/22 08/14/22 11:59 11:59 11:59 11:59 Intake Total 2374 2560 Output Total 1200 1100 Balance 1174 1460 Weight 151.953 kg 150.5 kg Laboratory Results (Last 24 hours) 08/13/22 08/13/22 10:39 10:39 WBC 8.8 RBC 4.91 Hgb 14.3 Hct 42.8 MCV 87.2 MCH 29.1 MCHC 33.4 RDW 12.7 Plt Count 177 MPV 9.4 Sodium 134 L Potassium 4.0 Chloride 104 Carbon Dioxide 23 Anion Gap 11.4 BUN 15 Creatinine 0.82 Estimated GFR > 60.0 Glucose 81 Calcium 8.2 L Total Bilirubin 2.20 H AST 19 ALT 22 Alkaline Phosphatase 63 Serum Total Protein 6.3 Albumin 3.6 Orders (Last 24 hours) Category Date Time Status Admission Status Change [Change to Full Admit] ROUTINE Care 08/12/22 17:30 Active House Regular Diet Diet 08/13/22 Dinner Active CBC Urgent Lab 08/13/22 10:39 Completed CBC W DIFF AM.LAB Lab 08/14/22 04:00 Ordered CMP AM.LAB Lab 08/14/22 04:00 Ordered CMP Urgent Lab 08/13/22 10:39 Completed Patient Care Notes (Last 24 hours) 08/13/22 16:17 Nursing Note by Casandra Huerta PT TOLERATED CLEAR LIQUID TRAY WITHOUT COMPLICATIONS. PT DENIES N/V AND ABDOMINAL PAIN. WILL INCREASE TO HOUSE REGULAR DIET AT THIS TIME. Initialized on 08/13/22 16:17 - END OF NOTE 08/13/22 14:50 Nursing Note by Casandra Huerta ROUNDED ON PT WITH DR. Jose VELAZQUEZ. REC. THE FOLLOWING ORDERS: START CLEAR LIQUID DIET NOW AND ADVANCE TOLERATED. Initialized on 08/13/22 14:50 - END OF NOTE 08/13/22 12:05 Case Management Note by Divine Velásquez S/W PATIENT- HE CONTINUES TO DENY ANY NEW NEEDS AT TIME OF DC. Initialized on 08/13/22 12:05 - END OF NOTE 08/12/22 18:37 Nursing Note by Tiffanie Haas This nurse rounded with Dr. Dutch Velazquez. He stated that patient should continue on ice chips only to continue to rest the bowel. No new orders. Will continue to follow. Initialized on 08/12/22 18:37 - END OF NOTE Code(s): K57.40 - DVTRCLI OF BOTH SMALL AND LG INT W PERF AND ABSCS W/O BLEED
[2022-08-14] MEDS: PIPERACILLIN/TAZOBACTAM 3.375 GM in Sodium Chloride 100ML MINI-BAG PLUS 100 ML IV SCH (05:20)
[2022-08-14] MEDS: Sodium Chloride 0.9% 1000 ML 1,000 ML IV SCH (05:20)
[2022-08-14 05:28] LABS: Absolute Neutrophil Ct (ANC) 4.65 x10^3/uL (1.4-6.9); Basophil (Absolute #) 0.04 x10^3/uL (0-0.4); Eosinophil % 3.2 % (0.00-5.0); Eosinophil (Absolute #) 0.23 x10^3/uL (0-0.5); Hematocrit 38.9 % (42-50); Hemoglobin 13.2 g/dL (12.5-18.0); Lymphocyte (Absolute #) 1.66 x10^3/uL (1.0-4.6); Mean Cell Volume 85.9 fL (78-100); Mean Corpuscular Hemoglobin 29.1 pg (26-32); Mean Corpuscular Hgb Concent. 33.9 g/dL (32-36); Mean Platelet Volume 9.6 fL (7.5-11.0); Monocyte (Absolute #) 0.63 x10^3/uL (0.0-1.3); Monocytes % 8.7 % (0.0-12.0); Neutrophil % 64.2 % (36.0-66.0); Platelet Count 183 x10^3/uL (150-450); Red Blood Count 4.53 x10^6/uL (4.1-5.6); Red Cell Distribution Width 12.4 % (11.5-14.0); White Blood Count 7.2 x10^3/uL (4.0-10.5)
[2022-08-14 06:39] LABS: ALBUMIN 3.3 g/dL (3.5-5.0); ALKALINE PHOSPHATASE 56 U/L (38-126); ANION GAP 8.9 MEQ/L (5-15); BLOOD UREA NITROGEN 12 mg/dL (9-20); CHLORIDE 105 mmol/L (98-107); Carbon Dioxide 27 mmol/L (22-30); Creatinine 1 0.99 mg/dL (0.66-1.25); EST GLOMERULAR FILTRATION RATE > 60.0 ML/MIN; Glucose 82 mg/dL (74-106); Potassium 3.6 mmol/L (3.5-5.1); SGOT/AST 20 U/L (17-59); SGPT/ALT 20 U/L (0-50); SODIUM 138 mmol/L (137-145); Total Protein 6.2 g/dL (6.3-8.2)
[2022-08-14 07:41] VITALS: BP 123/76; PULSE 73
--- NOTE | 2022-08-14 07:53 | PROG NOTE ---
FOLLOW UP CONSULT DATE: 08/13/2022 HISTORY: The patient has microperforation for diverticulitis. He was seen and examined by Dr. Landry yesterday. At this time, the patient is better and requesting a diet. Full liquids are ordered, advancing to regular. His white count is down to 8,000 doing much better. Probably he will soon be able to be discharged tomorrow per his family doctor. We would like to see him back in the office in two to three weeks. He probably will need an outpatient colonoscopy in six to eight weeks.
--- NOTE | 2022-08-14 08:02 | PCM.NOTE ---
Date and Time: 08/14/22 0800 Subjective Assessment: doing better - Review of Systems Constitutional: No Fever, No Chills Eyes: No Symptoms Ears, Nose, & Throat: No Symptoms Respiratory: No Cough, No Short Of Breath Cardiac: No Chest Pain, No Edema, No Syncope Abdominal/Gastrointestinal: No Abdominal Pain, No Nausea, No Vomiting, No Diarrhea Genitourinary Symptoms: No Dysuria Musculoskeletal: No Back Pain, No Neck Pain Skin: No Rash Neurological: No Dizziness, No Focal Weakness, No Sensory Changes Psychological: No Symptoms Endocrine: No Symptoms Hematologic/Lymphatic: No Symptoms Immunological/Allergic: No Symptoms Objective Exam General Appearance: no apparent distress, alert Neurologic Exam: alert, oriented x 3, cooperative, normal mood/affect, nml cerebellar function, sensation nml, No motor deficits Skin Exam: normal color, warm, dry Eye Exam: PERRL, EOMI, eyes nml inspection Ears, Nose, Throat Exam: normal ENT inspection, pharynx normal, moist mucous membranes Neck Exam: normal inspection, non-tender, supple, full range of motion Respiratory Exam: normal breath sounds, lungs clear, No respiratory distress Cardiovascular Exam: regular rate/rhythm, normal heart sounds Gastrointestinal/Abdomen Exam: soft, No tenderness, No mass Extremity Exam: normal inspection, normal range of motion Back Exam: normal inspection, normal range of motion, No CVA tenderness, No vertebral tenderness Male Genitalia Exam: deferred Rectal Exam: deferred OBJECTIVE DATA Vital Signs: Vital Signs - 24 hr Temp Pulse Resp BP Pulse Ox 08/14/22 07:40 97.7 F 73 16 123/76 95 08/14/22 03:44 98.2 F 70 20 112/70 98 08/13/22 23:39 98.3 F 95 H 20 129/81 96 08/13/22 20:00 97.7 F 90 18 131/82 100 08/13/22 19:49 100 08/13/22 16:00 97.5 F 80 16 138/82 96 08/13/22 11:27 97.1 F 81 18 121/58 100 Pain Assessment - Last Documented Pain Intensity 0 Pain Scale Used 0-10 Pain Scale Intake and Output: Intake & Output 08/11/22 08/12/22 08/13/22 08/14/22 11:59 11:59 11:59 11:59 Intake Total 2374 2560 3344 Output Total 1200 1100 Balance 1174 1460 3344 Weight 151.953 kg 150.5 kg Lab Results: Lab Results-Last 24 Hours 08/13/22 08/13/22 08/14/22 Range/Units 10:39 10:39 04:45 WBC 8.8 7.2 (4.0-10.5) x10^3/uL RBC 4.91 4.53 (4.1-5.6) x10^6/uL Hgb 14.3 13.2 (12.5-18.0) g/dL Hct 42.8 38.9 L (42-50) % MCV 87.2 85.9 (78-100) fL MCH 29.1 29.1 (26-32) pg MCHC 33.4 33.9 (32-36) g/dL RDW 12.7 12.4 (11.5-14.0) % Plt Count 177 183 (150-450) x10^3/uL MPV 9.4 9.6 (7.5-11.0) fL Gran % 64.2 (36.0-66.0) % Immature Gran % (Auto) 0.3 (0.00-0.4) % Nucleat RBC Rel Count 0.0 (0.00-0.1) % Eos # (Auto) 0.23 (0-0.5) x10^3/uL Immature Gran # (Auto) 0.02 (0.00-0.03) x10^3u/L Absolute Lymphs (auto) 1.66 (1.0-4.6) x10^3/uL Absolute Monos (auto) 0.63 (0.0-1.3) x10^3/uL Absolute Nucleated RBC 0.00 (0.00-0.01) x10^3u/L Lymphocytes % 23.0 L (24.0-44.0) % Monocytes % 8.7 (0.0-12.0) % Eosinophils % 3.2 (0.00-5.0) % Basophils % 0.6 (0.0-0.4) % Absolute Granulocytes 4.65 (1.4-6.9) x10^3/uL Basophils # 0.04 (0-0.4) x10^3/uL Sodium 134 L (137-145) mmol/L Potassium 4.0 (3.5-5.1) mmol/L Chloride 104 (98-107) mmol/L Carbon Dioxide 23 (22-30) mmol/L Anion Gap 11.4 (5-15) MEQ/L BUN 15 (9-20) mg/dL Creatinine 0.82 (0.66-1.25) mg/dL Estimated GFR > 60.0 ML/MIN Glucose 81 (74-106) mg/dL Calcium 8.2 L (8.4-10.2) mg/dL Total Bilirubin 2.20 H (0.2-1.3) mg/dL AST 19 (17-59) U/L ALT 22 (0-50) U/L Alkaline Phosphatase 63 (38-126) U/L Serum Total Protein 6.3 (6.3-8.2) g/dL Albumin 3.6 (3.5-5.0) g/dL 08/14/22 Range/Units 04:45 WBC (4.0-10.5) x10^3/uL RBC (4.1-5.6) x10^6/uL Hgb (12.5-18.0) g/dL Hct (42-50) % MCV (78-100) fL MCH (26-32) pg MCHC (32-36) g/dL RDW (11.5-14.0) % Plt Count (150-450) x10^3/uL MPV (7.5-11.0) fL Gran % (36.0-66.0) % Immature Gran % (Auto) (0.00-0.4) % Nucleat RBC Rel Count (0.00-0.1) % Eos # (Auto) (0-0.5) x10^3/uL Immature Gran # (Auto) (0.00-0.03) x10^3u/L Absolute Lymphs (auto) (1.0-4.6) x10^3/uL Absolute Monos (auto) (0.0-1.3) x10^3/uL Absolute Nucleated RBC (0.00-0.01) x10^3u/L Lymphocytes % (24.0-44.0) % Monocytes % (0.0-12.0) % Eosinophils % (0.00-5.0) % Basophils % (0.0-0.4) % Absolute Granulocytes (1.4-6.9) x10^3/uL Basophils # (0-0.4) x10^3/uL Sodium 138 (137-145) mmol/L Potassium 3.6 (3.5-5.1) mmol/L Chloride 105 (98-107) mmol/L Carbon Dioxide 27 (22-30) mmol/L Anion Gap 8.9 (5-15) MEQ/L BUN 12 (9-20) mg/dL Creatinine 0.99 (0.66-1.25) mg/dL Estimated GFR > 60.0 ML/MIN Glucose 82 (74-106) mg/dL Calcium 8.0 L (8.4-10.2) mg/dL Total Bilirubin 0.90 (0.2-1.3) mg/dL AST 20 (17-59) U/L ALT 20 (0-50) U/L Alkaline Phosphatase 56 (38-126) U/L Serum Total Protein 6.2 L (6.3-8.2) g/dL Albumin 3.3 L (3.5-5.0) g/dL Multi-Disciplinary Progress Notes: Multi-Disciplinary Progress Notes 08/13/22 12:05 Case Management Note by Divine Velásquez S/W PATIENT- HE CONTINUES TO DENY ANY NEW NEEDS AT TIME OF DC. 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 Plan to discharge once ok by surgery Code(s): K57.40 - DVTRCLI OF BOTH SMALL AND LG INT W PERF AND ABSCS W/O BLEED
[2022-08-14 08:03] VITALS: O2SAT 100
[2022-08-14] MEDS: ENOXAPARIN SODIUM SQ SCH (08:39)
== END 2022-08-14 10:23 | disposition home or self-care (01) | DRG 392 ==
LOC: ED 08:45 → MED SURG 12:29 → OBSVTOIN 08-12 17:30
PROVIDERS: ADMIT General Practice; ATTEND General Practice
DX: K57.40 Diverticulitis of both small and large intestine with perforation and abscess without bleeding (principal); Z79.01 Long term (current) use of anticoagulants; Z79.899 Other long term (current) drug therapy; Z20.828 Contact with and (suspected) exposure to other viral communicable diseases
CPT/HCPCS: 0241U; 36000; 36415; 74176; 80053; 81015; 83605; 83690; 84484; 85025; 85027; 93268; 94762; 96360; 96374; 96375; 96376; 99285; J1170; J1650; J2270; A9270-GY; G0378